=== PATIENT | female | born 1975 | race Caucasian/White ===

== ENCOUNTER 2016-12-02 16:45 | Observation (INO) ==
[2016-12-02 18:12] LABS: INR 1.1; Prothrombin Time 11.5 Seconds (9.4-12.1)
[2016-12-02 18:15] LABS: Activated Partial Thrombo Time 33.9 Seconds (26.0-36.0)
[2016-12-02 18:18] LABS: BUN/Creatinine Ratio 14 (6-26); Blood Urea Nitrogen 13 mg/dL (7-20); Carbon Dioxide 22 mEq/L (19-29); Chloride 107 mEq/L (98-109); Glucose 82 mg/dL (70-99); Osmolality,Calculated 281 (280-300); Potassium 3.8 mEq/L (3.5-4.5); Sodium 136 mEq/L (136-145); eGFR For African Americans > 60 (> 60); eGFR For Non-African Americans > 60 (> 60)
[2016-12-02] MEDS ORDERED: Metoclopramide 10 MG/2 ML VIAL IVP ONE (19:00)
[2016-12-02] MEDS ORDERED: Ketorolac 15 MG/ML VIAL IVP ONE (19:00)
[2016-12-02] MEDS ORDERED: 0.9 % Sodium Chloride 1,000 ML IVC ONE (19:03)
[2016-12-02] MEDS ORDERED: 0.9 % Sodium Chloride 1,000 ML ONE (19:05)
--- NOTE | 2016-12-02 19:06 | Emergency Department Note ---
Disposition Clinical Impression: Stable angina Disposition: Admitted As Inpatient Condition: Good Time of Disposition: 20:44 Chest Pain HPI - General Chief Complaint: ED Chest Pain Stated Complaint: Chest pain, dizziness, MARVIN Time Seen by Provider: 12/02/16 18:16 Source: patient Mode of arrival: ambulatory Limitations: no limitations Vital Signs Reviewed: Yes Nursing Notes Reviewed: Yes - History of Present Illness HPI Narrative: Patient presents to the ED with the chief complaint of chest pain and shortness of breath. Patient reports that she has been having midsternal chest pressure and heaviness for the last month but has been significantly worse over the past week. She saw her primary care physician last week who increased her blood pressure medication. She states that she feels like this does not help. She reports this morning she woke up and had several episodes of emesis. States that the last few episodes were blood-streaked. She states that she vomits very frequently and has had this before. Her complaint of chest pain . She reports as midsternal a very heavy pressure like pain that radiates into her right jaw and neck and her left shoulder. It is associated with some shortness of breath. She gets nauseated from time to time. She does get diaphoretic at 2. She reports of this chest pain is very much exertional, but will also happen at rest at times. She does complain of a migraine type headache for the last few days. She states that this is her typical migraine and is a pressure all over. No changes in vision, numbness or weakness. No fevers, cough, abdominal pain or diarrhea. She does not history of pulmonary embolism several years ago that was non-provoked. She was on a Xarelto but quit taking it. She did not have any hematologic workup for it at that time. She does also complain of bilateral lower extremity claudication with walking. She states that it will go away with rest within a few minutes. She reports that her mother has had 13 stents and her heart and her first heart attack was well before age 52. She does have an appointment set up with cardiology at this facility, but it is not until December of this year. She is unsure who she is supposed to see. Severity scale (1-10): 7 - Related Data Home Medications Medication Instructions Recorded Confirmed ALPRAZolam [Xanax 0.5 MG Tablet] 0.5 mg PO TID PRN 11/04/16 12/02/16 Albuterol Sulfate [Ventolin Hfa] 2 puff IH Q4H PRN 11/04/16 12/02/16 Calcium Carbonate/Vitamin D3 1 each PO BID 11/04/16 12/02/16 [Calcium 500 + Vit D Caplet] Cetirizine HCl [All Day Allergy] 10 mg PO DAILY PRN 11/04/16 12/02/16 Cholecalciferol (D-3) [Vitamin D] 2,000 unit PO DAILY 11/04/16 12/02/16 Fluticasone Propionate [Flovent 1 puff IH BID 11/04/16 12/02/16 Hfa] Ibuprofen [Ibuprofen] 800 mg PO TID PRN 11/04/16 12/02/16 Losartan Potassium [Cozaar] 50 mg PO DAILY 11/04/16 12/02/16 Methocarbamol [Robaxin] 750 mg PO Q4H PRN 11/04/16 12/02/16 Metoprolol XL (24 HR) Succ [Toprol 50 mg PO 11/04/16 12/02/16 XL] Nitroglycerin [Nitrostat] 0.4 mg SL Q5M PRN 11/04/16 12/02/16 Omeprazole [PriLOSEC] 40 mg PO DAILY 11/04/16 12/02/16 Paliperidone Palmitate [Invega 117 mg IM QMONTH 11/04/16 12/02/16 Sustenna] Quetiapine Fumarate [Seroquel] 400 mg PO HS 11/04/16 12/02/16 Ranitidine HCl [Zantac] 300 mg PO 11/04/16 12/02/16 Topiramate [Topiramate] 100 mg PO BID 11/04/16 12/02/16 lamoTRIgine [Lamictal] 100 mg PO QAM 11/04/16 12/02/16 Amitriptyline HCl 150 mg PO 12/02/16 12/02/16 Ferrous Sulfate [High Potency Iron] 134 mg PO DAILY 12/02/16 12/02/16 Hyoscyamine Sulfate [Hyoscyamine 0.375 mg PO Q12H 12/02/16 12/02/16 Sulfate ER] lamoTRIgine [Lamictal] 200 mg PO 12/02/16 12/02/16 Allergies Allergy/AdvReac Type Severity Reaction Status Date / Time Penicillins Allergy See Verified 12/02/16 16:50 Comments Constitutional: Denies: fever Eyes: Denies: vision change Cardiovascular: Reports: chest pain, dyspnea on exertion Respiratory: Reports: dyspnea Gastrointestinal: Reports: nausea, vomiting Neurological: Reports: headache Chest Pain PMH - Past Medical History Medical history: Reports: arthritis, hypertension, migraine Surgical history: Reports: non-contributory Psychiatric history: Reports: anxiety, bipolar, depression SLUBBER FRAME CHANGER history: Reports: no SLUBBER FRAME CHANGER history - Social History Smoking Status: Never smoker Alcohol use: Reports: occasionally Drug use: Reports: none Physical Exam - General Limitations: no limitations General appearance: alert, in no apparent distress, obese, other (Very pleasant , but appears to feel unwell) - Head Head exam: atraumatic, normocephalic, normal inspection - Eye Eye exam: Present: normal appearance, PERRL, EOMI - ENT ENT exam: normal exam, normal oropharynx, mucous membranes moist - Neck Neck exam: Present: normal inspection, full ROM, trachea midline - Chest Chest inspection: Present: normal inspection, symmetric chest wall rise - Respiratory Respiratory exam: Present: normal lung sounds bilaterally - Cardiovascular Cardiovascular exam: Present: regular rate, normal rhythm, normal heart sounds - Abdominal Exam Abdominal exam: Present: soft, Non-Tender. Absent: tenderness, distention, guarding, rebound, rigidity - Extremities Exam Extremities exam: Present: normal inspection, full ROM. Absent: tenderness, pedal edema - Neurological Exam Neurological exam: Present: alert, oriented X3 - Psychiatric Psychiatric exam: Present: flat affect - Skin Skin exam: Present: warm, dry, intact, normal color Course Course Narrative: 41-year-old female presenting with chest pain and shortness of breath and headache. Strong family history of heart disease. Also has a history of pulmonary embolism and is no longer on anticoagulation. This was not a provoked PE nor did she have hematologic testing for clotting disorders. Her well's score is 5.5, placing her in a moderate risk category. We will proceed with a CTA of her chest to rule out PE. Initial troponin is negative. An initial EKG is normal. After we evaluated for PE. She will be admitted to the hospitalist service for further cardiac workup. - Reevaluation(s) Reevaluation #1: CTA of her chest was negative for pulmonary embolism. However, based on her risk factors and history, her heart score is 4-5. We will admit her to the hospital service for further workup. Patient agreeable with plan. Time: 20:15 Vital Signs Temperature 97.7 F 12/02/16 16:47 Pulse Rate 91 12/02/16 16:47 Respiratory Rate 22 12/02/16 16:47 Blood Pressure 173/103 12/02/16 16:47 O2 Sat by Pulse Oximetry 100 12/02/16 16:47 Temperature 97.5 F L 12/02/16 22:25 Pulse Rate 70 12/02/16 22:25 Respiratory Rate 18 12/02/16 22:25 Blood Pressure 126/86 12/02/16 22:25 O2 Sat by Pulse Oximetry 100 12/02/16 22:25 Oxygen Delivery Oxygen Delivery Room Air Chest Pain - Medical Records Medical records reviewed: Yes I reviewed the patient's medical records. - Lab Data Lab results reviewed: Yes I reviewed the patient's lab results. Result diagrams: 12/02/16 21:44 12/02/16 17:54 Lab Results 12/02/16 12/02/16 12/02/16 Range/Units 17:54 17:54 17:54 PT 11.5 (9.4-12.1) Seconds INR 1.1 APTT 33.9 (26.0-36.0) Seconds Sodium 136 (136-145) mEq/L Potassium 3.8 (3.5-4.5) mEq/L Chloride 107 (98-109) mEq/L Carbon Dioxide 22 (19-29) mEq/L BUN 13 (7-20) mg/dL Creatinine 0.92 (0.57-1.11) mg/dL Est GFR ( Amer) > 60 (> 60) Est GFR (Non-Af Amer) > 60 (> 60) BUN/Creatinine Ratio 14 (6-26) Glucose 82 (70-99) mg/dL Calculated Osmolality 281 (280-300) Calcium 9.0 (8.6-10.8) mg/dL Troponin I 0.01 (0-0.03) ng/mL - Radiology Data Radiology results reviewed: Yes I reviewed the patient's radiology results. - EKG Data EKG attestation: Yes I reviewed and interpreted this EKG. EKG results narrative: Sinus rhythm, rate 84, TN interval 171, QRS 98, QTC 406, normal axis, inverted T waves in lead V1 and V2, otherwise no changes. Heart Score - Score History: Highly Suspicious EKG: Non Specific repolarisation Disturbance Age: Less than 45 Risk Factors: Equal/Greater than 3 risk factor or history of atherosclerotic disease Troponin: Less than normal limit HEART Score Total: 5 S.B.AOrtiz. - S.Ethel Situation: Demographics, MOA Background: Presenting Complaint, Relevant PMH, Meds, & Allergies Assessment: Vital Signs, Course and respsone to treatment, Exam Concerns, Patient/Family Expectation, Pertinant Lab Results, Outstanding Labs Recommendation: Recommendation based on pending studies, treatments, or consults S.B.A.RKandice Report Given to: Dr. Maryanne Schwab Repor Time: 20:45 Attestation Statement - Attestation Attestation: I, Romario Simon, examined this patient and my medical decision-making was reviewed with the STENCIL MACHINE OPERATOR/PA/Advanced Practice Nurse/Resident Physician. I agree with the documented findings, disposition and treatment plan as described except to the extent set forth below. 41-year-old female presents with concerns of chest pain and lightheadedness. Patient states she has been having chest pain intermittently over the past month however. It has become significantly worse over the past week. Today the patient has had multiple episodes of chest pain described as a pressure in her central chest which radiates to her jaw and left shoulder. Patient reports associated diaphoresis, shortness of breath and lightheadedness. Patient has a family history with multiple family members being diagnosed with cardiac disease before the age of 50. Patient is morbidly obese and has a history of tobacco use, hypertension and hyperlipidemia. Patient states she failed a stress test one year ago however has not had further evaluation of her heart. Initial troponin was negative. Heart score equals 5. CTA of the chest did not reveal acute infiltrate, pneumothorax or evidence of PE. Initial EKG showed normal sinus rhythm with a rate of 84 without evidence of STEMI. Patient will be admitted to the hospital for further care and evaluation of her acute chest pain to rule out ACS.
[2016-12-02] MEDS ORDERED: Ondansetron 4 MG/2 ML VIAL IVP ONE (20:21)
[2016-12-02] MEDS ORDERED: *HR* HYDROmorphone (PF) 1 MG/ML SYRINGE IVP ONE (20:36)
[2016-12-02] MEDS ORDERED: Aspirin 325 MG TABLET PO ONE (20:36)
[2016-12-02] MEDS ORDERED: Nitroglycerin 1 INCH/GM PACKET TP ONE (20:37)
[2016-12-02 22:11] LABS: Basophils % 0.7 %; Eosinophils # 0.1 K/mcL (0.0-0.6); Eosinophils % 1.9 %; Hematocrit 34.5 % (35.3-44.9); Hemoglobin 10.7 g/dL (11.5-15.4); Immature Granulocytes % 1.2 % (0-4); Immature Platelets 4.4 % (1.1-6.1); Lymphocytes # 1.7 K/mcL (0.6-4.6); Lymphocytes % 30.1 %; Mean Corpuscular Volume 90.3 fL (83.0-100.0); Mean Platelet Volume 10.1 fL (9.4-12.4); Monocytes # 0.6 K/mcL (0.0-1.3); Monocytes % 9.6 %; Neutrophils # 3.3 K/mcL (1.6-8.9); Platelet Count 248 K/mcL (140-400); Red Blood Count 3.82 M/mcL (3.82-4.97); Segmented Neutrophils % 56.5 %
--- NOTE | 2016-12-02 23:58 | Internal Med History&Physical ---
Date of Encounter: 12/03/16 Time of Encounter: 23:56 Assessment and Plan (1) Chest pain Current visit: Yes Status: Acute atypical chest pain. denies any h/o CHF or CAD in the past posisble from uncontrolled hTN, her PCP increased her BP meds recently. BP noted to be 170s/120s on presentation nitro patch was applied, better now, family h/o CAD in mother with 13 stents. will continue cecilia nitroglycerin, monitor tele. trop is negative, will trend x3, less likely ACS , EKG NSR. Qualifiers: Chest pain type: unspecified Qualified Code(s): R07.9 - Chest pain, unspecified (2) History of pulmonary embolus (PE) Current visit: Yes Status: Acute Patient reports history of PE in 2013. Unprovoked as per the history. Took xarelto for 1-1/2 months and discontinued by herself as the insurance did not cover. CTA done this admission does not show any evidence of PE at this time. (3) Uncontrolled hypertension Current visit: Yes Status: Acute BP at presentation was 170s/120s reports that she had new meds added by her PCP. currently 120s/80s, will continue to monitor restart her home BP meds. (4) Migraine Current visit: Yes Status: Acute h/o migraine and she says its pretty much controlled with the lamictal and topamax. however she has been experiencing worsening headache for the last couple of days , ? from uncontrolled HTN will continue her home meds for migraine, ibuprofen prn. Qualifiers: Migraine type: without aura Status migrainosus presence: without status migrainosus Intractability: not intractable Qualified Code(s): G43.009 - Migraine without aura, not intractable, without status migrainosus Internal Medicine - H&P: HPI Chief complaint: chest pain Admitted From: Home Plans for Post Hospital Care: Home History of present illness: Ms. Brown is a 41 year old female presented with midsternal chest pressure and heaviness that has been going on for last month but has been significantly worse over the past week. She saw her primary care physician last week who increased her blood pressure medication. She reports as midsternal a very heavy pressure like pain that radiates into her right jaw and neck and her left shoulder. It is associated with some shortness of breath. She gets nauseated from time to time. She reports of this chest pain is very much exertional, but will also happen at rest at times. She does complain of a migraine type headache for the last few days. No changes in vision, numbness or weakness. No fevers, cough, abdominal pain or diarrhea. She does have a history of pulmonary embolism several years ago that was non-provoked. She was on a Xarelto but quit taking it after a month and a half because she says the insurance did not cover. She did not have any hematologic workup for it at that time. She reports that her mother has had 13 stents and her heart and her first heart attack was well before age 52. She does have an appointment set up with cardiology at this facility, but it is not until December of this year. Denies any history of cardiac catheterization or stent he started history of CHF or CAD in the past Past Med Surg Social Fam HX - Past Medical History Medical history: arthritis, hypertension, migraine Psychiatric history: anxiety, bipolar, depression - Past Surgical History Surgical History: non-contributory - Social History Smoking Status: Never smoker Smokeless Tobacco Status: Yes Alcohol use: occasionally Drug use: none - Family History Mother Hx Family Cardiac Disorders: Yes (MYOCARDIAL INFARCTION.) Internal Medicine - H&P: Meds ALPRAZolam [Xanax 0.5 MG Tablet] 0.5 mg PO TID PRN 11/04/16 [History] Albuterol Sulfate [Ventolin Hfa] 2 puff IH Q4H PRN 11/04/16 [History] Calcium Carbonate/Vitamin D3 [Calcium 500 + Vit D Caplet] 1 each PO BID [History] Cetirizine HCl [All Day Allergy] 10 mg PO DAILY PRN 11/04/16 [History] Cholecalciferol (D-3) [Vitamin D] 2,000 unit PO DAILY 11/04/16 [History] Fluticasone Propionate [Flovent Hfa] 1 puff IH BID 11/04/16 [History] Ibuprofen [Ibuprofen] 800 mg PO TID PRN 11/04/16 [History] Losartan Potassium [Cozaar] 50 mg PO DAILY 11/04/16 [History] Methocarbamol [Robaxin] 750 mg PO Q4H PRN 11/04/16 [History] Metoprolol XL (24 HR) Succ [Toprol XL] 50 mg PO HS 11/04/16 [History] Nitroglycerin [Nitrostat] 0.4 mg SL Q5M PRN 11/04/16 [History] Omeprazole [PriLOSEC] 40 mg PO DAILY 11/04/16 [History] Paliperidone Palmitate [Invega Sustenna] 117 mg IM QMONTH 11/04/16 [History] Quetiapine Fumarate [Seroquel] 400 mg PO HS 11/04/16 [History] Ranitidine HCl [Zantac] 300 mg PO HS 11/04/16 [History] Topiramate [Topiramate] 100 mg PO BID 11/04/16 [History] lamoTRIgine [Lamictal] 100 mg PO QAM 11/04/16 [History] Amitriptyline HCl 150 mg PO HS 12/02/16 [History] Ferrous Sulfate [High Potency Iron] 134 mg PO DAILY 12/02/16 [History] Hyoscyamine Sulfate [Hyoscyamine Sulfate ER] 0.375 mg PO Q12H 12/02/16 [History] lamoTRIgine [Lamictal] 200 mg PO HS 12/02/16 [History] Allergies Penicillins Allergy (Verified 12/02/16 16:50) See Comments "I don't know" CHILDHOOD REACTION All Systems PM: A 10-system review of systems was performed and is negative for pertinent findings except as documented above in the HPI. - Constitutional Constitutional: no chills, no fever(s), no night sweats - EENT Eyes: no change in vision, no discharge, no pain, no photophobia Ears: no ear discharge, no ear pain, no tinnitus Nose, mouth and throat: no dysphagia, no nasal discharge, no neck pain, no sore throat - Cardiovascular Cardiovascular ROS IM: chest pain - Respiratory Respiratory: dyspnea on exertion - Gastrointestinal Gastrointestinal: no abdominal pain, no diarrhea, no hematemesis, no hematochezia, no melena, no nausea, no vomiting - Genitourinary Genitourinary: no change in urinary stream, no dysuria, no flank pain, no hematuria - Musculoskeletal Musculoskeletal ROS IM: as per HPI - Constitutional Vitals: Temp Pulse Resp BP Pulse Ox 97.5 F L 70 18 126/86 100 12/02/16 22:25 07/05/17 22:25 12/02/16 22:25 12/02/16 22:25 12/02/16 22:25 General appearance: Present: A&O X 3, no acute distress Exam: Morbidly obese patient. Neck supple. Chest bilateral clear, no added sounds. CVS S1-S2, no murmurs rubs or gallops. Abdomen soft, obese, nontender, bowel sounds are present. Extremities no edema. Neuro alert and awake, no focal neuro deficits. Internal Med - H&P Results - Labs CBC & Chem 7: 12/03/16 01:40 12/03/16 01:40 Labs: Short CBC 12/02/16 Range/Units 21:44 WBC 5.8 (4.3-11.1) K/mcL Hgb 10.7 L (11.5-15.4) g/dL Hct 34.5 L (35.3-44.9) % Plt Count 248 (140-400) K/mcL Neutrophils # 3.3 (1.6-8.9) K/mcL - Attending Attestation I examined this patient and my medical decision-making was reviewed with the Resident Physician. I agree with the documented findings, disposition and treatment plan as described
[2016-12-03] MEDS ORDERED: Naloxone 0.4 MG/ML INJ IVP PRN (00:05)
[2016-12-03] MEDS: *HR* HYDROmorphone (PF) 1 MG/ML SYRINGE IVP PRN ×5 (00:52→22:13)
[2016-12-03] MEDS: Ondansetron 4 MG/2 ML VIAL IVP PRN ×2 (00:55→13:12)
[2016-12-03 02:26] LABS: Basophils % 0.8 %; Eosinophils # 0.1 K/mcL (0.0-0.6); Eosinophils % 2.4 %; Hematocrit 34.1 % (35.3-44.9); Hemoglobin 10.6 g/dL (11.5-15.4); Immature Granulocytes % 1.6 % (0-4); Immature Platelets 2.8 % (1.1-6.1); Lymphocytes # 1.6 K/mcL (0.6-4.6); Lymphocytes % 32.1 %; Mean Corpuscular HGB Conc 31.1 g/dL (31.6-35.5); Mean Corpuscular Hemoglobin 28.2 pg (28.0-33.3); Mean Corpuscular Volume 90.7 fL (83.0-100.0); Mean Platelet Volume 10.3 fL (9.4-12.4); Monocytes # 0.5 K/mcL (0.0-1.3); Monocytes % 8.9 %; Neutrophils # 2.7 K/mcL (1.6-8.9); Platelet Count 244 K/mcL (140-400); Red Blood Count 3.76 M/mcL (3.82-4.97); Segmented Neutrophils % 54.2 %
[2016-12-03 02:43] LABS: BUN/Creatinine Ratio 15 (6-26); Blood Urea Nitrogen 14 mg/dL (7-20); Calcium 8.3 mg/dL (8.6-10.8); Carbon Dioxide 27 mEq/L (19-29); Chloride 107 mEq/L (98-109); Glucose 106 mg/dL (70-99); Magnesium 1.9 mg/dL (1.6-2.6); Osmolality,Calculated 291 (280-300); Phosphorous 3.9 mg/dL (2.3-4.7); Potassium 3.3 mEq/L (3.5-4.5); Sodium 140 mEq/L (136-145); eGFR For African Americans > 60 (> 60); eGFR For Non-African Americans > 60 (> 60)
[2016-12-03 06:41] LABS: Bilirubin,Urine Negative (Negative); Blood,Urine Negative (Negative); Clarity,Urine Clear (Clear); Color,Urine Yellow (Yellow); Glucose,Urine (UA) Normal (Normal); Ketones,Urine Negative (Negative); Leukocyte Esterase,Urine Negative (Negative); Nitrite,Urine Negative (Negative); PH,Urine 5.5 pH Units (5.0-8.0); Protein,Urine Negative (Neg-Trace); Specific Gravity,Urine > 1.030 (1.010-1.025); Urobilinogen,Urine Normal (Normal)
[2016-12-03] MEDS: Beclomethasone 80mcg MDI IH SCH ×2 (07:53→20:03)
[2016-12-03] MEDS: lamoTRIgine 100 MG TABLET PO SCH ×2 (08:57→21:03)
[2016-12-03] MEDS: Aspirin 81 MG TAB.CHEW PO SCH (08:57)
[2016-12-03] MEDS: Topiramate 100 MG TABLET PO SCH ×2 (08:58→21:04)
[2016-12-03] MEDS: ALPRAZolam 0.5 MG TABLET PO PRN ×2 (08:58→22:14)
--- NOTE | 2016-12-03 11:52 | Electrocardiograph Report ---
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
--- NOTE | 2016-12-03 15:38 | Internal Med Progress Note ---
Date of Encounter: 12/03/16 Time of Encounter: 09:40 - Assessment and plan (1) Chest pain Current Visit: Yes Status: Acute Assessment and plan: Patient reports approximately 12-14 day history of chest pressure. She describes it as feeling like she was punched in the middle of the chest, then she feels palpitations, squeezing pain accompanied by shortness of breath. She reports that this happens daily, has increased to 4-5 times a day, lasting anywhere from 5 min to 2 hours. She states that symptoms began about 12 days ago after primary care physician adjusted her blood pressure medications. She saw him after 2 day history of chest pain, shortness breath, headache. Along with the chest pain she has right ear tinnitus, headache. She tells me that this morning she forgot to swallow and over the last 2 weeks when she takes a deep breath, "I feel like I am breathing through my abdomen and gets lost there and it takes my brain a while to tell the rest of my body what to do." Due to patient's history of morbid obesity and hypertension, family history of coronary artery disease in mother, I ordered a stress test for the morning. Patient will require a 2 day stress. Troponins have been negative, chest CTA negative for pulmonary embolism or other acute process. Chest x-ray was negative. A1c was within normal limits in Sep, 2016. Lipid panel will be drawn. Nothing by mouth after midnight Telemetry Stress test morning Consider cardiology consult based on results of stress test Medications chest pain. Monitor labs in the morning Continue aspirin and beta mauricio Qualifiers: Chest pain type: unspecified Qualified Code(s): R07.9 - Chest pain, unspecified (2) History of pulmonary embolus (PE) Current Visit: Yes Status: Acute Assessment and plan: Prior history of PE in 2013. Patient is a relative for about 1-1/2 months and discontinued by herself due to lack of insurance coverage. CTA this visit was negative for PE. Chest X-Ray 12/02/16 16:50 IMPRESSION: Negative portable study. D/ / Adilia Robbins Cha, MD / Adilia Robbins Cha, MD Interpreting Provider: Adilia Robbins Cha, MD Chest CTA 12/02/16 18:46 IMPRESSION: No evidence of pulmonary embolism or other acute process in the chest. D/ / Gage Araiza MD / Gage Araiza MD Interpreting Provider: Gage Araiza MD (3) Uncontrolled hypertension Current Visit: Yes Status: Acute Assessment and plan: Patient reports recent medication changes. Blood pressure is well-controlled at this time. Continue home medications. Continue monitor vital signs. (4) Migraine Current Visit: Yes Status: Acute Assessment and plan: Patient denies headache at this time. She reports to admit her that her headaches have been increasing over the last couple of days, could be from uncontrolled hypertension. Patient states normally they are well controlled with Lamictal and Topamax. Continue her home meds. Qualifiers: Migraine type: without aura Status migrainosus presence: without status migrainosus Intractability: not intractable Qualified Code(s): G43.009 - Migraine without aura, not intractable, without status migrainosus - Time Spent With Patient less than 15 minutes - Subjective Interval history: Patient seen and examined about 9:40 AM. She reports approximately 12-14 day history of chest pain, shortness of breath, headache. She was seen by her primary care physician about a week and half ago and her blood pressure medications were changed. She was told that if she continued to have problems she used to go to the emergency room. She presented to the emergency room yesterday with chest pain the patient states it feels like she was punched in the chest, then she begins feeling palpitations and tachycardia, then she begins having squeezing and shortness of breath. She denies diaphoresis, however she did have nausea yesterday. She reports that this happened daily, has increased to 4-5 times a day lasting anywhere from 5 minutes to 2 hours. She reports along with the chest pain she has right ear tinnitus and headache. Today she states that she forgot how to swallow this morning and over the last 2 weeks she takes deep breath, "I feel like I am breathing through my abdomen and gets lost their takes membrane a while to fill the rest of my body what to do." Patient does have a history of depression and anxiety and takes Xanax when necessary. She denies increased anxiety her situation change. She says that she is happier than she has been in a very long time. She denies increased use of the Xanax and states that she only take support it 5 times a week. I ordered a stress test for tomorrow. - Constitutional Vitals: Temp Pulse Resp BP Pulse Ox 97.7 F 84 14 139/81 98 12/03/16 15:04 12/03/16 15:04 12/03/16 15:04 12/03/16 15:04 12/03/16 15:04 General appearance: Present: A&O X 3, pleasant, no acute distress, answers questions appropriately - Head Head exam: Present: normal inspection - Eye Eye exam: Present: normal appearance, conjuntiva pink - ENT ENT exam: Present: mucous membranes moist, normal exam, normal external ear exam - Neck Neck exam general surgery: Absent: lymphadenopathy, tenderness - Respiratory Respiratory exam: Present: CTAB. Absent: accessory muscle use, decreased breath sounds, prolonged expiratory phase, rales, respiratory distress, rhonchi , stridor, wheezes, tachypnea - Cardiovascular Cardiovascular exam: Present: RRR, +S1, +S2. Absent: bradycardia, clicks, diastolic murmur, gallop, systolic murmur, tachycardia - GI/Abdominal GI/Abdominal exam: Present: distended, normal bowel sounds, soft. Absent: hernia, hepatomegaly, tenderness - Extremities Exam Extremities exam: Present: normal inspection, pedal edema, warm, radial pulses palpable and symetrical. Absent: tenderness - Neurological Exam Neurological exam: Present: alert, oriented X3, no focal deficits, strengths equal and symetr throughout. Absent: facial droop, speech deficit Internal Medicine: Result - Labs CBC & Chem 7: 12/03/16 01:40 12/03/16 01:40 Labs: Short CBC 12/02/16 12/03/16 Range/Units 21:44 01:40 WBC 5.8 5.1 (4.3-11.1) K/mcL Hgb 10.7 L 10.6 L (11.5-15.4) g/dL Hct 34.5 L 34.1 L (35.3-44.9) % Plt Count 248 244 (140-400) K/mcL Neutrophils # 3.3 2.7 (1.6-8.9) K/mcL BMP 12/03/16 01:40 Sodium 140 Potassium 3.3 L Chloride 107 Carbon Dioxide 27 BUN 14 Creatinine 0.94 Glucose 106 H Calcium 8.3 L Cardiac Enzymes 12/03/16 12/03/16 Range/Units 01:40 06:25 Troponin I 0.00 0.00 (0-0.03) ng/mL Urine 12/03/16 Range/Units 06:20 Urine Color Yellow (Yellow) Urine Clarity Clear (Clear) Urine pH 5.5 (5.0-8.0) pH Units Ur Specific [place] > 1.030 H (1.010-1.025) Urine Protein Negative (Neg-Trace) mg/dL Urine Glucose (UA) Normal (Normal) mg/dL - ABG Interpretation ABG results: PT/INR, D-dimer PT 11.5 Seconds (9.4-12.1) 12/02/16 17:54 Consult Discharge Plan - Plan Referrals: Jamey Leroy MD [Primary Care Provider] - 12/11/16 10:45 am
[2016-12-03] MEDS: Metoprolol XL (24 HR) Succ 50 MG TAB.ER.24H PO SCH (21:04)
[2016-12-03] MEDS: Ibuprofen 800 MG TABLET PO PRN (21:13)
[2016-12-04] MEDS: Ondansetron 4 MG/2 ML VIAL IVP PRN ×2 (03:12→16:05)
[2016-12-04] MEDS: *HR* HYDROmorphone (PF) 1 MG/ML SYRINGE IVP PRN (03:16)
[2016-12-04 03:33] LABS: Basophils % 0.7 %; Eosinophils # 0.2 K/mcL (0.0-0.6); Eosinophils % 3.2 %; Hematocrit 34.3 % (35.3-44.9); Hemoglobin 10.5 g/dL (11.5-15.4); Immature Granulocytes % 1.2 % (0-4); Lymphocytes # 1.8 K/mcL (0.6-4.6); Lymphocytes % 29.7 %; Mean Corpuscular HGB Conc 30.6 g/dL (31.6-35.5); Mean Corpuscular Hemoglobin 27.6 pg (28.0-33.3); Mean Platelet Volume 9.8 fL (9.4-12.4); Monocytes # 0.6 K/mcL (0.0-1.3); Monocytes % 9.7 %; Neutrophils # 3.3 K/mcL (1.6-8.9); Platelet Count 255 K/mcL (140-400); Red Blood Count 3.81 M/mcL (3.82-4.97); Red Cell Distribution Width 13.9 % (11.5-14.5); Segmented Neutrophils % 55.5 %
[2016-12-04 03:48] LABS: BUN/Creatinine Ratio 14 (6-26); Blood Urea Nitrogen 15 mg/dL (7-20); Calcium 8.8 mg/dL (8.6-10.8); Carbon Dioxide 28 mEq/L (19-29); Chloride 106 mEq/L (98-109); Chol/HDL Ratio 7.5 (0-4.9); Cholesterol 232 mg/dL (< 200); Glucose 106 mg/dL (70-99); HDL Cholesterol 31 mg/dL (40-59); Osmolality,Calculated 289 (280-300); Potassium 4.1 mEq/L (3.5-4.5); Sodium 139 mEq/L (136-145); eGFR For African Americans > 60 (> 60); eGFR For Non-African Americans 55 (> 60)
[2016-12-04 04:28] LABS: LDL Cholesterol,Calculated 159 mg/dL (0-99); Triglycerides 208 mg/dL (< 150)
[2016-12-04] MEDS ORDERED: Regadenoson 0.4 MG/5 ML SYRINGE IVP ONE (06:08)
[2016-12-04 10:57] LABS: % Iron Saturation 29 % (15-50); Iron 75 mcg/dL (50-170); Transferrin 182 mg/dL (180-382)
[2016-12-04] MEDS: Aspirin 81 MG TAB.CHEW PO SCH (11:02)
[2016-12-04] MEDS: Ibuprofen 800 MG TABLET PO PRN (11:02)
[2016-12-04] MEDS: lamoTRIgine 100 MG TABLET PO SCH ×2 (11:03→20:35)
[2016-12-04] MEDS: Topiramate 100 MG TABLET PO SCH ×2 (11:03→20:35)
[2016-12-04 11:32] LABS: Folate 4.7 ng/mL (7.0-31.4)
[2016-12-04] MEDS: Beclomethasone 80mcg MDI IH SCH ×2 (12:28→20:20)
[2016-12-04] MEDS ORDERED: traMADol 50 MG TABLET PO ONE (16:04)
--- NOTE | 2016-12-04 17:42 | Electrocardiograph Report ---
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
--- NOTE | 2016-12-04 18:33 | Internal Med Progress Note ---
Date of Encounter: 12/04/16 Time of Encounter: 13:00 - Assessment and plan (1) Chest pain Current Visit: Yes Status: Acute Assessment and plan: Chest pain has improved slightly today. Decreased in intensity, however character remains the same. Patient reports that she had chest pain during her stress test. Today pain is slightly reproducible deep inspiration. It is not reproducible with palpation. Nothing by mouth after midnight Telemetry Stress test morning Consider cardiology consult based on results of stress test Medications chest pain. Monitor labs in the morning Continue aspirin and beta mauricio Qualifiers: Chest pain type: unspecified Qualified Code(s): R07.9 - Chest pain, unspecified (2) History of pulmonary embolus (PE) Current Visit: Yes Status: Acute Assessment and plan: Prior history of PE in 2013. Patient is a relative for about 1-1/2 months and discontinued by herself due to lack of insurance coverage. CTA this visit was negative for PE. Chest X-Ray 12/02/16 16:50 IMPRESSION: Negative portable study. D/ / Adilia Robbins Cha, MD / Adilia Robbins Cha, MD Interpreting Provider: Adilia Robbins Cha, MD Chest CTA 12/02/16 18:46 IMPRESSION: No evidence of pulmonary embolism or other acute process in the chest. D/ / Gage Araiza MD / Gage Araiza MD Interpreting Provider: Gage Araiza MD (3) Uncontrolled hypertension Current Visit: Yes Status: Acute Assessment and plan: Well-controlled. We will continue to monitor vital signs continue home medications. (4) Migraine Current Visit: Yes Status: Acute Assessment and plan: Patient denies headache at this time. Continue her home meds. Qualifiers: Migraine type: without aura Status migrainosus presence: without status migrainosus Intractability: not intractable Qualified Code(s): G43.009 - Migraine without aura, not intractable, without status migrainosus - Time Spent With Patient less than 15 minutes - Subjective Interval history: Patient seen and examined about 1300 today. She has completed first day of stress test. She says she continues to have chest pressure. She says it is decreased to about an 8/10. It is not reproducible with palpation, though today it is slightly reproducible with deep inspiration. She denies any complaints. Most likely will discharge tomorrow stress test negative. - Constitutional Vitals: Temp Pulse Resp BP Pulse Ox 97.2 F L 82 20 122/84 95 12/04/16 15:31 12/04/16 15:31 12/04/16 15:31 12/04/16 15:31 12/04/16 15:31 General appearance: Present: A&O X 3, morbidly obese, pleasant, no acute distress, answers questions appropriately - Head Head exam: Present: normal inspection - Eye Eye exam: Present: normal appearance, conjuntiva pink - ENT ENT exam: Present: mucous membranes moist, normal exam - Neck Neck exam general surgery: Absent: lymphadenopathy, tenderness - Respiratory Respiratory exam: Present: decreased breath sounds, CTAB. Absent: chest wall tenderness, rales, respiratory distress, rhonchi, stridor, wheezes - Cardiovascular Cardiovascular exam: Present: RRR, +S1, +S2. Absent: clicks, diastolic murmur, gallop, systolic murmur - GI/Abdominal GI/Abdominal exam: Present: distended, normal bowel sounds. Absent: tenderness - Neurological Exam Neurological exam: Present: alert, oriented X3. Absent: pronater drift, facial droop, speech deficit - Skin Skin exam: Present: dry, intact, warm. Absent: rash Internal Medicine: Result - Labs CBC & Chem 7: 12/04/16 03:24 12/04/16 03:24 Labs: Short CBC 12/04/16 Range/Units 03:24 WBC 6.0 (4.3-11.1) K/mcL Hgb 10.5 L (11.5-15.4) g/dL Hct 34.3 L (35.3-44.9) % Plt Count 255 (140-400) K/mcL Neutrophils # 3.3 (1.6-8.9) K/mcL BMP 12/04/16 03:24 Sodium 139 Potassium 4.1 Chloride 106 Carbon Dioxide 28 BUN 15 Creatinine 1.11 Glucose 106 H Calcium 8.8 - ABG Interpretation ABG results: PT/INR, D-dimer PT 11.5 Seconds (9.4-12.1) 12/02/16 17:54 Consult Discharge Plan - Plan Referrals: Jamey Leroy MD [Primary Care Provider] - 12/11/16 10:45 am
[2016-12-04] MEDS: ALPRAZolam 0.5 MG TABLET PO PRN (20:34)
[2016-12-04] MEDS: Metoprolol XL (24 HR) Succ 50 MG TAB.ER.24H PO SCH (20:36)
[2016-12-05] MEDS: lamoTRIgine 100 MG TABLET PO SCH (09:45)
[2016-12-05] MEDS: Topiramate 100 MG TABLET PO SCH (09:45)
[2016-12-05] MEDS: Aspirin 81 MG TAB.CHEW PO SCH (09:45)
[2016-12-05] MEDS: Ibuprofen 800 MG TABLET PO PRN (09:45)
[2016-12-05] MEDS: Beclomethasone 80mcg MDI IH SCH (09:58)
[2016-12-05] MEDS ORDERED: Loratadine 10 MG TABLET PO PRN (10:00)
[2016-12-05] MEDS ORDERED: HYOSCYAMINE SULFATE 0.375 MG PO SCH (10:00)
[2016-12-05] MEDS ORDERED: Methocarbamol 750 MG TABLET PO PRN (10:00)
[2016-12-05 11:54] VITALS: BP 136/90
--- NOTE | 2016-12-05 12:34 | Nuclear Medicine Stress Report ---
Regadenoson Nuclear 2 day Name: Keli Brown Date of Study: 12/04/2016 Date: 1975 Ht: 70.0 in Medical Record#: [id number] Age: 41 Wt: 397.0 lb Gender: Female Order #: [id number] Location: [facility] Room: [facility] Supervising Provider: Arnold Hansen CNP Reading Physician: Skye Drake DO Ordering Physician: Lexi Pacheco CNP Primary Care Physician: Jamey Leroy MD Stress Technologist: Ayde Wilson RRT Security Representative: Mitch England Indications: Chest Pain Impression: Perfusion imaging was negative for ischemia or infarct. Pharmacologic ECG was negative for ischemia at the level of heart rate achieved. Patient had chest pain throughout procedure. Gated EF = 62%. Recommend clinical correlation. History: Hypertension Stress Test Summary: Stress Test Type: Pharmacologic Regadenoson 0.4mg/5ml given IV Baseline Information: Initial Heart Rate: 74 Blood Pressure: 130/86 Stress Information: Test Terminated Due to (primary): As per protocol Maximum Blood Pressure: 112/80 Maximum Heart Rate: 91 Percent Maximum Heart Rate Achieved: 50 Double Product: 58133 METS Reached: 1 Symptoms: Chest pain Nuclear Summary: SPECT myocardial perfusion imaging using Tc99m Sestamibi given intravenously was performed at rest and following cardiac stress testing. The resting images were obtained following initial dose of 31.6 mCi. Following stress an additional dose of 32 mCi was given at peak exercise or 30 seconds post regadenoson infusion. Medication Given: Time Medication Dose Units Route Findings: Stress Note * Resting ECG demonstrated normal sinus rhythm. * Pharmacologic stress ECG is negative for ischemia at level of heart rate achieved. * No arrhythmias were noted during stress. * Patient had chest pain throughout the study. Hemodynamic responses * Normal hemodynamic responses to pharmacologic stress. Study Quality * Technically challenging 2-day study due to body habitus. Gated EF % * Gated EF = 62%. Left Ventricle * The left ventricle is not dilated. TID * No evidence of transient ischemic dilatation. Lung Uptake * There is no evidence of increase lung uptake. NORMALS * Normal wall motion. PERFUSION * Homogeneous rest and stress perfusion images. No evidence for ischemia or infarct. Updated by Skye Drake on 12/05/2016 12:29:05 PM electronically signed on 12/05/2016 12:30:16 PM with status of Final
--- NOTE | 2016-12-05 12:44 | Discharge Summary ---
Date of Encounter: 12/05/16 Time of Encounter: 09:35 - Discharge Diagnosis (1) Chest pain Priority: Primary Status: Acute Comments: Pt states that chest pain has been better today and has only increased when she was "agitated when I was having to lie still on the table down there." Today pt states that chest pain is reproduceable with deep inspiration, and today with palpation. She completed day 2 of her stress test today, it was negative for ischemia or infarct and a gated EF of 62%. EKG showed SR with a rate of 86, NE interval 181, QT/QTc 420. Pt normally takes Ibuprofen, will give her a few Ultram for breakthrough pain. S1S2 heard without murmur, gallop, clicks. Lungs are clear. There is no peripheral edema. Pt does report persistent cough that she has had for 2 months. I will also give her Guaifenesin for cough at home. I feel that this is more musculoskeletal chest wall pain. I have suggested heat , anti-inflammatory medications, rest, and I will give her Tramadol for severe breakthrough pain and Guaifenesin. Chest X-Ray 12/02/16 16:50 IMPRESSION: Negative portable study. D/ / Adilia Robbins Cha, MD / Adilia Robbins Cha, MD Interpreting Provider: Adilia Robbins Cha, MD Chest CTA 12/02/16 18:46 IMPRESSION: No evidence of pulmonary embolism or other acute process in the chest. D/ / Gage Araiza MD / Gage Araiza MD Interpreting Provider: Gage Araiza MD Qualifiers: Chest pain type: unspecified Qualified Code(s): R07.9 - Chest pain, unspecified (2) History of pulmonary embolus (PE) Priority: Secondary Status: Chronic Comments: Prior history of PE. CTA here negative for PE. (3) Uncontrolled hypertension Priority: Secondary Status: Chronic Comments: Well controlled in inpatient setting. Continue home medications. (4) Migraine Priority: Secondary Status: Chronic Comments: Chronic. Continue home medications. Qualifiers: Migraine type: without aura Status migrainosus presence: without status migrainosus Intractability: not intractable Qualified Code(s): G43.009 - Migraine without aura, not intractable, without status migrainosus (5) Anemia Priority: Secondary Status: Acute Comments: Folate level 4.7. Hgb remains steady at 10.5 throughout visit. Pt denies remington bleeding, vaginal, rectal. Will supplement with Folic Acid. Follow up outpatient. Qualifiers: Anemia type: folate deficiency Folate deficiency anemia type: unspecified folate deficiency Qualified Code(s): D52.9 - Folate deficiency anemia, unspecified - Discharge Medications Prescriptions: Folic Acid 1 mg PO DAILY #30 tablet GuaiFENesin ER [Mucinex] 600 mg PO BID PRN #30 tbbp.12hr PRN Reason: Cough Simvastatin [Zocor] 20 mg PO QPM #30 tablet Tramadol HCl [Ultram] 50 mg PO BID PRN #6 tab PRN Reason: Severe Pain Home Medications: ALPRAZolam [Xanax 0.5 MG Tablet] 0.5 mg PO TID PRN 11/04/16 [History] Albuterol Sulfate [Ventolin Hfa] 2 puff IH Q4H PRN 11/04/16 [History] Calcium Carbonate/Vitamin D3 [Calcium 500 + Vit D Caplet] 1 each PO BID [History] Cetirizine HCl [All Day Allergy] 10 mg PO DAILY PRN 11/04/16 [History] Cholecalciferol (D-3) [Vitamin D] 2,000 unit PO DAILY 11/04/16 [History] Fluticasone Propionate [Flovent Hfa] 1 puff IH BID 11/04/16 [History] Ibuprofen 800 mg PO TID PRN 11/04/16 [History] Losartan Potassium [Cozaar] 50 mg PO DAILY 11/04/16 [History] Methocarbamol [Robaxin] 750 mg PO Q4H PRN 11/04/16 [History] Metoprolol XL (24 HR) Succ [Toprol Xl] 50 mg PO HS 11/04/16 [History] Nitroglycerin [Nitrostat] 0.4 mg SL Q5M PRN 11/04/16 [History] Omeprazole [PriLOSEC] 40 mg PO DAILY 11/04/16 [History] Paliperidone Palmitate [Invega Sustenna] 117 mg IM QMONTH 11/04/16 [History] Quetiapine Fumarate [Seroquel] 400 mg PO HS 11/04/16 [History] Ranitidine HCl [Zantac] 300 mg PO HS 11/04/16 [History] Topiramate 100 mg PO BID 11/04/16 [History] lamoTRIgine [Lamictal] 100 mg PO QAM 11/04/16 [History] Amitriptyline HCl 150 mg PO HS 12/02/16 [History] Ferrous Sulfate [High Potency Iron] 134 mg PO DAILY 12/02/16 [History] Hyoscyamine Sulfate [Hyoscyamine Sulfate ER] 0.375 mg PO Q12H 12/02/16 [History] lamoTRIgine [Lamictal] 200 mg PO HS 12/02/16 [History] Folic Acid 1 mg PO DAILY #30 tablet 12/05/16 [Rx] GuaiFENesin ER [Mucinex] 600 mg PO BID PRN #30 tbbp.12hr 12/05/16 [Rx] Simvastatin [Zocor] 20 mg PO QPM #30 tablet 12/05/16 [Rx] Tramadol HCl [Ultram] 50 mg PO BID PRN #6 tab 12/05/16 [Rx] Allergies/Adverse Reactions: Allergies Penicillins Allergy (Verified 12/02/16 16:50) See Comments "I don't know" CHILDHOOD REACTION Procedures/tests Complete & Pending: Procedures Performed prior 72 hours Category Date Time Status NM bairon perf SPECT multi [NM] Routine Exams 12/03/16 09:55 Taken ECG 12 lead ECG [ECG] Routine Y 12/03/16 21:01 Completed SP pharm nuclear stress Routine Y 12/04/16 09:55 Completed Date of admission: 12/02/16 21:35 Primary care physician: Jamey Leroy MD Discharging clinician: Lexi Pacheco Anticipated date of discharge: 12/05/16 - Patient Status Disposition: Home, Self-Care Functional capacity at discharge: independent ambulation Overall status at discharge: patient is progressing back to baseline - Discharge Instructions Follow Up With: Jamey Leroy MD [Primary Care Provider] - 12/11/16 10:45 am Additional Instructions: Please follow up with your primary care provider in the next week to 10 days for a follow up visit. Please follow up with cardiology as scheduled on 12/30. Take your new medications as directed. Take the Tramadol only as needed for uncontrolled pain with your normal home medications. Discuss your anemia with your doctor and take your Folic acid as directed. Guaifenesin for cough. Return to the ER as needed for any other problems or concerns or if your pain or symptoms return. - Diet and Activity Activity: increase activity as tolerated Diet: advance to your usual diet Hospital course: Ms. Brown is a 41 year old female - Time Spent with Patient Total time spent providing and/or coordinating discharge services: - Constitutional Vitals: Temp Pulse Resp BP Pulse Ox 98.2 F 84 16 136/90 97 12/05/16 11:53 12/05/16 11:53 12/05/16 11:53 12/05/16 11:53 12/05/16 11:53 General appearance: Present: cooperative, A&O X 3, morbidly obese, pleasant, no acute distress, answers questions appropriately - Head Head exam: Present: normal inspection - Eye Eye exam: Present: normal appearance, conjuntiva pink - ENT ENT exam: Present: mucous membranes moist, normal exam, normal external ear exam - Neck Neck exam general surgery: Absent: lymphadenopathy, tenderness - Respiratory Respiratory exam: Present: CTAB. Absent: rales, respiratory distress, rhonchi, stridor, wheezes - Cardiovascular Cardiovascular exam: Present: RRR, +S1, +S2. Absent: clicks, diastolic murmur, gallop, systolic murmur - GI/Abdominal GI/Abdominal exam: Present: distended, normal bowel sounds, soft. Absent: hepatomegaly, tenderness - Extremities Exam Extremities exam: Present: normal capillary refill, normal inspection, pedal edema, warm, radial pulses palpable and symetrical. Absent: tenderness - Back Exam Back exam: Present: full ROM, tenderness, vertebral tenderness - Neurological Exam Neurological exam: Present: alert, oriented X3. Absent: facial droop, speech deficit
[2016-12-06] MEDS ORDERED: Cholecalciferol (D-3) 1,000 UNIT TABLET PO SCH (09:00)
== END 2016-12-05 14:00 | disposition home or self-care (01) ==
LOC: EMEROO 16:45 → 3BNU 16:45
PROVIDERS: ADMIT Internal Medicine Endocrinology, Diabetes & Metabolism; ATTEND Registered Nurse

== ENCOUNTER 2017-01-31 14:21 | Observation (INO) ==
[2017-01-31 15:00] LABS: Basophils % 0.6 %; Eosinophils # 0.1 K/mcL (0.0-0.6); Eosinophils % 0.8 %; Hematocrit 39.8 % (35.3-44.9); Hemoglobin 12.3 g/dL (11.5-15.4); Immature Granulocytes % 0.5 % (0-4); Immature Platelets 2.4 % (1.1-6.1); Lymphocytes # 1.4 K/mcL (0.6-4.6); Lymphocytes % 21.7 %; Mean Corpuscular HGB Conc 30.9 g/dL (31.6-35.5); Mean Corpuscular Hemoglobin 27.6 pg (28.0-33.3); Mean Corpuscular Volume 89.4 fL (83.0-100.0); Mean Platelet Volume 9.5 fL (9.4-12.4); Monocytes # 0.5 K/mcL (0.0-1.3); Monocytes % 7.2 %; Neutrophils # 4.4 K/mcL (1.6-8.9); Platelet Count 275 K/mcL (140-400); Red Blood Count 4.45 M/mcL (3.82-4.97); Red Cell Distribution Width 13.5 % (11.5-14.5); Segmented Neutrophils % 69.2 %
--- NOTE | 2017-01-31 15:09 | Emergency Department Note ---
Disposition Clinical Impression: Chest pain Qualifiers: Chest pain type: unspecified Qualified Code(s): R07.9 - Chest pain, unspecified Dyspnea Qualifiers: Dyspnea type: unspecified Qualified Code(s): R06.00 - Dyspnea, unspecified Disposition: Admitted As Inpatient Condition: Fair Time of Disposition: 16:10 SOB HPI - General Chief Complaint: ED Shortness of Breath/Dyspnea Stated Complaint: MARVIN,CHF Time Seen by Provider: 01/31/17 15:00 Source: patient Mode of arrival: ambulatory Limitations: no limitations Nursing Notes Reviewed: Yes Vital Signs Reviewed: Yes - History of Present Illness 42-year-old with a history CHF who comes in complaining of increasing dyspnea. Patient also has a history of asthma. Patient's had a recent workup in the last month or 2 which included a negative nuclear stress test, with an EF of 62%. Echocardiogram shows EF of 60%. A CTA of the chest was obtained which was negative for PE. Pt Subjective Complaint: shortness of breath Onset (ago): day(s) Context: occurred during exertion Severity: none Consistency/Duration: constant Improves with: nothing Worsens with: exertion Known history of: asthma, congestive heart failure Associated symptoms: Reports: chest pain Treatment prior to arrival: none Cough Frequency: Intermittent - Related Data Home Medications Medication Instructions Recorded Confirmed ALPRAZolam [Xanax 0.5 MG Tablet] 0.5 mg PO TID PRN 11/04/16 01/31/17 Albuterol Sulfate [Ventolin Hfa] 2 puff IH Q4H PRN 11/04/16 01/31/17 Calcium Carbonate/Vitamin D3 1 each PO BID 11/04/16 01/31/17 [Calcium 500 + Vit D Caplet] Cetirizine HCl [All Day Allergy] 10 mg PO DAILY PRN 11/04/16 01/31/17 Cholecalciferol (D-3) [Vitamin D] 2,000 unit PO DAILY 11/04/16 01/31/17 Fluticasone Propionate [Flovent 1 puff IH BID 11/04/16 01/31/17 Hfa] Ibuprofen 800 mg PO TID PRN 11/04/16 01/31/17 Losartan Potassium [Cozaar] 50 mg PO QAM 11/04/16 01/31/17 Methocarbamol [Robaxin] 750 mg PO Q4H PRN 11/04/16 01/31/17 Nitroglycerin [Nitrostat] 0.4 mg SL Q5M PRN 11/04/16 01/31/17 Omeprazole [PriLOSEC] 40 mg PO QAM 11/04/16 01/31/17 Quetiapine Fumarate [Seroquel] 400 mg PO HS 11/04/16 01/31/17 Ranitidine HCl [Zantac] 300 mg PO HS 11/04/16 01/31/17 lamoTRIgine [Lamictal] 100 mg PO QAM 11/04/16 01/31/17 Amitriptyline HCl 150 mg PO HS 12/02/16 01/31/17 Ferrous Sulfate [High Potency Iron] 134 mg PO DAILY 12/02/16 01/31/17 Hyoscyamine Sulfate [Hyoscyamine 0.375 mg PO Q12H 12/02/16 01/31/17 Sulfate ER] lamoTRIgine [Lamictal] 200 mg PO HS 12/02/16 01/31/17 Atorvastatin [Lipitor] 40 mg PO HS 01/31/17 01/31/17 Furosemide [Lasix] 20 mg PO DAILY 01/31/17 01/31/17 Gabapentin [Neurontin] 300 mg PO TID 01/31/17 01/31/17 Metoprolol XL (24 HR) Succ [Toprol 25 mg PO HS 01/31/17 01/31/17 XL] Paliperidone [Paliperidone ER] 3 mg PO DAILY 01/31/17 01/31/17 Promethazine [Phenergan] 25 mg PO BID PRN 01/31/17 01/31/17 Allergies Allergy/AdvReac Type Severity Reaction Status Date / Time Penicillins Allergy See Verified 01/31/17 14:28 Comments All systems ED: reviewed and negative except as stated. Constitutional: Denies: fever, chills, weakness, weight change Eyes: Denies: eye pain, eye discharge, vision change ENT ED: Denies: ear pain, throat pain, dental pain, hearing loss, epistaxis, congestion, dysphagia Cardiovascular: Reports: chest pain, dyspnea on exertion. Denies: palpitations , edema, syncope Respiratory: Denies: cough, dyspnea, wheezes, hemoptysis, stridor Gastrointestinal: Denies: abdominal pain, nausea, vomiting, diarrhea, constipation, hematemesis, melena, hematochezia Genitourinary: Denies: dysuria, frequency, hematuria, discharge Musculoskeletal: Denies: back pain, neck pain, arthralgia, myalgia Integumentary: Denies: rash, abrasion, lesions Neurological: Denies: headache, weakness, numbness, paresthesias, confusion, abnormal gait, vertigo Psychiatric: Denies: anxiety, depression, suicidal thoughts, homicidal thoughts , auditory hallucinations, visual hallucinations Endocrine: Denies: fatigue Hematological/Lymphatic: Denies: easy bleeding, easy bruising Allergic/Immunologic: Denies: facial swelling, urticaria Past Medical History - Past Medical History Medical history: Reports: arthritis, CHF, hypertension, migraine Surgical history: Reports: non-contributory Psychiatric history: Reports: anxiety, bipolar, depression PRACTICE PROFESSIONAL history: Reports: no PRACTICE PROFESSIONAL history - Social History Smoking Status: Never smoker Smokeless Tobacco Status: Yes Alcohol use: Reports: occasionally Drug use: Reports: none Physical Exam - General Limitations: no limitations General appearance: alert, in no apparent distress - Head Head exam: atraumatic, normocephalic, normal inspection - Eye Eye exam: Present: normal appearance, PERRL, EOMI - ENT ENT exam: normal exam, normal oropharynx, mucous membranes moist - Neck Neck exam: Present: normal inspection, full ROM, trachea midline - Chest Chest inspection: Present: normal inspection, symmetric chest wall rise - Respiratory Respiratory exam: Present: wheezes (Occasional), prolonged expiratory phase - Cardiovascular Cardiovascular exam: Present: regular rate, normal rhythm, normal heart sounds - Abdominal Exam Abdominal exam: Present: soft, Non-Tender. Absent: tenderness, distention, guarding, rebound, rigidity - Extremities Exam Extremities exam: Present: normal inspection, full ROM. Absent: tenderness, pedal edema - Expanded Lower Extremity Exam Neurovascular/Tendon exam: Absent: motor deficit, sensory deficit, tendon deficit Gait: observed and normal - Back Exam Back exam: Present: normal inspection, full ROM. Absent: tenderness - Neurological Exam Neurological exam: Present: alert, oriented X3 - Psychiatric Psychiatric exam: Present: normal affect, normal mood - Skin Skin exam: Present: warm, dry, intact, normal color Course - Reevaluation(s) Reevaluation #1: 42-year-old with multiple risk factors who comes in complaining of dyspnea and chest pain. The patient states she has a history of CHF. I did review her previous workup which shows an EF in the 60 range. Workup here shows a normal BNP and normal chest x-ray EKG shows a sinus rhythm without acute change. Her initial troponin was negative. Patient will be admitted for further evaluation and treatment. Time: 16:09 - Consultations Consultation #1: Discussed with Dr. Romario Noonan, admit hospitalist consult. Time: 15:45 Consultation #2: Discussed with Emi Pa, it. Time: 16:07 Vital Signs Temperature 98.2 F 01/31/17 14:24 Pulse Rate 106 01/31/17 14:24 Respiratory Rate 24 01/31/17 14:24 Blood Pressure 126/89 01/31/17 14:24 O2 Sat by Pulse Oximetry 99 01/31/17 14:24 Temperature 97.7 F 01/31/17 23:01 Pulse Rate 81 01/31/17 23:01 Respiratory Rate 18 01/31/17 23:01 Blood Pressure 145/90 01/31/17 23:01 O2 Sat by Pulse Oximetry 100 01/31/17 23:01 Oxygen Delivery Oxygen Delivery Room Air Shortness of Breath/Dyspnea - Lab Data Result diagrams: 01/31/17 14:51 01/31/17 14:51 Lab Results 01/31/17 01/31/17 01/31/17 Range/Units 14:51 14:51 14:51 WBC 6.3 (4.3-11.1) K/mcL RBC 4.45 (3.82-4.97) M/mcL Hgb 12.3 D (11.5-15.4) g/dL Hct 39.8 (35.3-44.9) % MCV 89.4 (83.0-100.0) fL MCH 27.6 L (28.0-33.3) pg MCHC 30.9 L (31.6-35.5) g/dL RDW 13.5 (11.5-14.5) % Plt Count 275 (140-400) K/mcL MPV 9.5 (9.4-12.4) fL Immature Gran % 0.5 (0-4) % Seg Neutrophils % 69.2 % Lymphocytes % 21.7 % Monocytes % 7.2 % Eosinophils % 0.8 % Basophils % 0.6 % Neutrophils # 4.4 (1.6-8.9) K/mcL Lymphocytes # 1.4 (0.6-4.6) K/mcL Monocytes # 0.5 (0.0-1.3) K/mcL Eosinophils # 0.1 (0.0-0.6) K/mcL Basophils # 0.0 (0.0-0.2) K/mcL Immature Plt Fraction 2.4 (1.1-6.1) % Sodium 139 (136-145) mEq/L Potassium 3.8 (3.5-4.5) mEq/L Chloride 104 (98-109) mEq/L Carbon Dioxide 25 (19-29) mEq/L BUN 14 (7-20) mg/dL Creatinine 1.01 (0.57-1.11) mg/dL Est GFR ( Amer) > 60 (> 60) Est GFR (Non-Af Amer) > 60 (> 60) BUN/Creatinine Ratio 14 (6-26) Glucose 89 (70-99) mg/dL Calculated Osmolality 288 (280-300) Lactic Acid 1.4 (0.5-2.2) mmol/L Calcium 9.2 (8.6-10.8) mg/dL Troponin I (0-0.03) ng/mL B-Natriuretic Peptide (0-100) pg/mL 01/31/17 01/31/17 Range/Units 14:51 14:51 WBC (4.3-11.1) K/mcL RBC (3.82-4.97) M/mcL Hgb (11.5-15.4) g/dL Hct (35.3-44.9) % MCV (83.0-100.0) fL MCH (28.0-33.3) pg MCHC (31.6-35.5) g/dL RDW (11.5-14.5) % Plt Count (140-400) K/mcL MPV (9.4-12.4) fL Immature Gran % (0-4) % Seg Neutrophils % % Lymphocytes % % Monocytes % % Eosinophils % % Basophils % % Neutrophils # (1.6-8.9) K/mcL Lymphocytes # (0.6-4.6) K/mcL Monocytes # (0.0-1.3) K/mcL Eosinophils # (0.0-0.6) K/mcL Basophils # (0.0-0.2) K/mcL Immature Plt Fraction (1.1-6.1) % Sodium (136-145) mEq/L Potassium (3.5-4.5) mEq/L Chloride (98-109) mEq/L Carbon Dioxide (19-29) mEq/L BUN (7-20) mg/dL Creatinine (0.57-1.11) mg/dL Est GFR ( Amer) (> 60) Est GFR (Non-Af Amer) (> 60) BUN/Creatinine Ratio (6-26) Glucose (70-99) mg/dL Calculated Osmolality (280-300) Lactic Acid (0.5-2.2) mmol/L Calcium (8.6-10.8) mg/dL Troponin I 0.01 (0-0.03) ng/mL B-Natriuretic Peptide 13 (0-100) pg/mL - Radiology Data Radiology results reviewed: Yes I reviewed the patient's radiology results. Chest X-Ray 01/31/17 14:28 IMPRESSION: No evidence of acute disease. D/ / Gilmer Irizarry MD / Gilmer Irizarry MD Interpreting Provider: Gilmer Irizarry MD Chest CTA 01/31/17 16:18 IMPRESSION: 1. Suboptimal opacification of subsegmental pulmonary artery branches. Within that limitation, no findings of pulmonary embolism are identified. 2. Mild cardiomegaly. D/ / Vito Light MD / Vito Light MD Interpreting Provider: Vito Light MD - EKG Data EKG attestation: Yes I reviewed and interpreted this EKG. EKG shows normal: Reports: sinus rhythm Rate: Reports: bradycardia Rhythm: Reports: NSR When compared to previous EKG there are: no significant changes (12/03/2016) Interpretation: Reports: no acute changes
[2017-01-31 15:11] LABS: BUN/Creatinine Ratio 14 (6-26); Blood Urea Nitrogen 14 mg/dL (7-20); Calcium 9.2 mg/dL (8.6-10.8); Carbon Dioxide 25 mEq/L (19-29); Chloride 104 mEq/L (98-109); Glucose 89 mg/dL (70-99); Osmolality,Calculated 288 (280-300); Potassium 3.8 mEq/L (3.5-4.5); Sodium 139 mEq/L (136-145); eGFR For African Americans > 60 (> 60); eGFR For Non-African Americans > 60 (> 60)
[2017-01-31] MEDS ORDERED: Ipratropium/Albuterol Neb 3 ML IH ONE (15:13)
[2017-01-31] MEDS ORDERED: *HR* Morphine 2 MG/ML SYRINGE IVP ONE ×2 (16:01→19:52)
[2017-01-31] MEDS ORDERED: Ondansetron 4 MG/2 ML VIAL IVP ONE (16:01)
[2017-01-31] MEDS ORDERED: Naloxone 0.4 MG/ML INJ IVP PRN (20:33)
[2017-01-31] MEDS ORDERED: Ondansetron 4 MG/2 ML VIAL IVP PRN (20:33)
[2017-01-31] MEDS ORDERED: Acetaminophen 325 MG TABLET PO PRN (20:33)
[2017-01-31] MEDS ORDERED: *HR* HYDROcodone/Acet 5/325 mg TABLET PO PRN (20:33)
[2017-01-31] MEDS ORDERED: Loratadine 10 MG TABLET PO PRN (20:41)
[2017-01-31] MEDS ORDERED: Nitroglycerin 0.4 MG TAB.SUBL SL PRN (20:41)
[2017-01-31] MEDS ORDERED: Methocarbamol 750 MG TABLET PO PRN (20:41)
[2017-01-31] MEDS ORDERED: Ibuprofen 600 MG TABLET PO PRN (20:57)
[2017-01-31] MEDS: Pantoprazole 40 MG VIAL IVP SCH (21:20)
[2017-01-31] MEDS: *HR* Heparin 5,000 UNIT/ML VIAL SQ SCH (21:21)
[2017-01-31] MEDS: Gabapentin 300 MG CAPSULE PO SCH (21:21)
[2017-01-31] MEDS: lamoTRIgine 100 MG TABLET PO SCH (21:21)
[2017-01-31] MEDS: Metoprolol XL (24 HR) Succ 25 MG TAB.ER.24H PO SCH (21:22)
[2017-01-31] MEDS: Furosemide 40 MG/4 ML VIAL IVP SCH (22:25)
[2017-01-31] MEDS: ALPRAZolam 0.5 MG TABLET PO PRN (22:25)
[2017-01-31] MEDS: Hyoscyamine SL 0.125 MG TAB.SUBL PO SCH (22:25)
--- NOTE | 2017-01-31 22:25 | Internal Med History&Physical ---
Date of Encounter: 02/01/17 Time of Encounter: 17:00 Assessment and Plan (1) Acute exacerbation of CHF (congestive heart failure) Current visit: Yes Status: Acute Patient presents with acute exacerbation of CHF based on current symptoms of fluid overload, bilateral pedal edema, and shortness of breath/dyspnea which is worsened over the past 2 weeks. Patient recently diagnosed with CHF and placed on by mouth 20 mg Lasix daily. 40 mg IVP Lasix twice a day ordered. Patient to be placed on continuous cardiac telemetry with supplemental O2 and SPO2 monitoring. Will monitor patient's I&O and daily weight. Fluid restriction diet 1.5 L daily. Cardiology consult ordered and the ED. turn out worker consult ordered to assess patient for home oxygen needs. We will monitor patient for increasing signs of cardiac and/or respiratory distress. Qualifiers: Congestive heart failure type: unspecified congestive heart failure type Qualified Code(s): I50.9 - Heart failure, unspecified (2) Chest pain Current visit: Yes Status: Acute Patient presents with acute chest pain that she describes as intermittent over the past 2 weeks and becoming worse symptomatically with coinciding SOB. This is most likely related to acute exacerbation of patient's CHF. Initial troponin on admission was 0.01. Trend troponin 2. Patient placed on continuous cardiac telemetry. Patient had recent workup in the last month for cardiac related symptoms which included a negative nuclear stress test with an EF of 60% and an echocardiogram showing EF of 60%. CT of the chest today was negative for PE. Will monitor patient closely. Qualifiers: Chest pain type: unspecified Qualified Code(s): R07.9 - Chest pain, unspecified (3) Dyspnea Current visit: Yes Status: Acute Patient presents with acute dyspnea related to current acute exacerbation of CHF. Supplemental O2 with titration if SPO2 monitoring less than 92% ordered. Continuous SpO2 monitoring. DuoNebs Q4 scheduled. IVP lasix 40 mg BID ordered. Qualifiers: Dyspnea type: unspecified Qualified Code(s): R06.00 - Dyspnea, unspecified (4) GERD (gastroesophageal reflux disease) Current visit: Yes Status: Chronic Patient presents with history of chronic GERD. IVP Zofran every 6 when necessary ordered. IVP Protonix 40 mg twice a day ordered. Qualifiers: Esophagitis presence: esophagitis presence not specified Qualified Code(s) : K21.9 - Gastro-esophageal reflux disease without esophagitis (5) History of pulmonary embolus (PE) Current visit: Yes Status: Chronic Patient presents with history previous pulmonary embolus. CT of the chest today shows suboptimal opacification of subsegmental pulmonary artery branches. Within that limitation, no findings of pulmonary embolism are identified. Mild cardiomegaly. (6) DVT prophylaxis Current visit: Yes Status: Acute Patient to be placed on DVT prophylaxis due to current admission protocol and current symptoms. Heparin 5000 units SQ every 8 ordered. Internal Medicine - H&P: HPI Chief complaint: SOB/Dyspnea/Chest pain Admitted From: Emergency Dept Plans for Post Hospital Care: Home History of present illness: Ms. Brown is a 42 year old female with medical history of arthritis, CHF, GERD, hypertension, and migraine who presents today to the ED with chief complaint of shortness of breath, dyspnea, and chest pain. Patient had a recent workup in the last 2 months which included a negative nuclear stress test with an EF of 62 % and an echocardiogram which showed an EF of 60% CTA of the chest today was negative for PE. Patient denies recent illness, fever, chills, weakness, changes in vision, palpitations, cough, abdominal pain, nausea, vomiting, diarrhea, constipation, unusual bleeding, weakness, presyncope, or syncope. Patient states she is a never smoker. Patient states chest pain has been intermittent for the past 2 weeks that became worse on . Patient also reports her lower extremities became swollen during the same time period. Patient reports she was recently diagnosed with CHF and placed on 20 mg of Lasix by mouth daily. On examination, patient's bilateral LEs show nonpitting edema. On auscultation, patient has bilateral wheezes and appears to be fluid overloaded. On admission patient's pulse rate was 93 206, most likely related to current SOB. Initial troponin in ED 0.01. Ms. Brown is a moderate risk for further respiratory and cardiac distress based on current symptoms and risk factors and we placed this observation status. Information obtained from patient, chart review, and previous medical records. Patient is currently hemodynamically stable and in no acute distress. Time spent with patient >40 minutes. Past Med Surg Social Fam HX - Past Medical History Source: patient, old records reviewed Medical history: arthritis, CHF, hypertension, migraine Psychiatric history: anxiety, bipolar, depression - Past Surgical History Surgical History: cholecystectomy, other (Tonsillectomy, adenoidectomy, bilateral ear tubes) - Social History Smoking Status: Never smoker Smokeless Tobacco Status: Yes Alcohol use: none Drug use: none Current living situation: Home, With Family Activity Level: Independent ambulation Recent Out of Country Travel Within the Last 8 Weeks: No Exposure or Possible Exposure to Illness During Travel: No - Family History Mother Age: 65 Race: Family Member Ethnicity: Non- Living Status: Still Living Hx Family Cardiac Disorders: Yes (HD, [place], Angioplasty with stents x13) Hx Family Endocrine Disorder: Yes (DM) Father Race: Family Member Ethnicity: Non- Living Status: Still Living Hx Family Cardiac Disorders: Yes (Afib, [place] x2, HTN, HLD) Brother History Unknown: Yes Race: Family Member Ethnicity: Non- Living Status: Still Living Internal Medicine - H&P: Meds ALPRAZolam [Xanax 0.5 MG Tablet] 0.5 mg PO TID PRN 11/04/16 [History] Albuterol Sulfate [Ventolin Hfa] 2 puff IH Q4H PRN 11/04/16 [History] Calcium Carbonate/Vitamin D3 [Calcium 500 + Vit D Caplet] 1 each PO BID [History] Cetirizine HCl [All Day Allergy] 10 mg PO DAILY PRN 11/04/16 [History] Cholecalciferol (D-3) [Vitamin D] 2,000 unit PO DAILY 11/04/16 [History] Fluticasone Propionate [Flovent Hfa] 1 puff IH BID 11/04/16 [History] Ibuprofen 800 mg PO TID PRN 11/04/16 [History] Losartan Potassium [Cozaar] 50 mg PO QAM 11/04/16 [History] Methocarbamol [Robaxin] 750 mg PO Q4H PRN 11/04/16 [History] Nitroglycerin [Nitrostat] 0.4 mg SL Q5M PRN 11/04/16 [History] Omeprazole [PriLOSEC] 40 mg PO QAM 11/04/16 [History] Quetiapine Fumarate [Seroquel] 400 mg PO HS 11/04/16 [History] Ranitidine HCl [Zantac] 300 mg PO HS 11/04/16 [History] lamoTRIgine [Lamictal] 100 mg PO QAM 11/04/16 [History] Amitriptyline HCl 150 mg PO HS 12/02/16 [History] Ferrous Sulfate [High Potency Iron] 134 mg PO DAILY 12/02/16 [History] Hyoscyamine Sulfate [Hyoscyamine Sulfate ER] 0.375 mg PO Q12H 12/02/16 [History] lamoTRIgine [Lamictal] 200 mg PO HS 12/02/16 [History] Atorvastatin [Lipitor] 40 mg PO HS 01/31/17 [History] Furosemide [Lasix] 20 mg PO DAILY 01/31/17 [History] Gabapentin [Neurontin] 300 mg PO TID 01/31/17 [History] Metoprolol XL (24 HR) Succ [Toprol XL] 25 mg PO HS 01/31/17 [History] Paliperidone [Paliperidone ER] 3 mg PO DAILY 01/31/17 [History] Promethazine [Phenergan] 25 mg PO BID PRN 01/31/17 [History] 3 Allergy/AdvReac Type Severity Reaction Status Date / Time Penicillins Allergy See Verified 01/31/17 14:28 Comments All Systems PM: A 10-system review of systems was performed and is negative for pertinent findings except as documented above in the HPI. - Constitutional Constitutional: no chills, no fever(s), no night sweats - EENT Eyes: no change in vision, no discharge, no pain, no photophobia Ears: no ear discharge, no ear pain, no tinnitus Nose, mouth and throat: no dysphagia, no nasal discharge, no neck pain, no sore throat - Breasts Breasts: as per HPI - Cardiovascular Cardiovascular ROS IM: as per HPI, chest pain, dyspnea, dyspnea on exertion, irregular heart rhythm (Tachycardia) - Respiratory Respiratory: as per HPI, dyspnea, dyspnea on exertion, wheezing - Gastrointestinal Gastrointestinal: no abdominal pain, no diarrhea, no hematemesis, no hematochezia, no melena, no nausea, no vomiting - Genitourinary Genitourinary: no change in urinary stream, no dysuria, no flank pain, no hematuria Menstruation: as per HPI - Musculoskeletal Musculoskeletal ROS IM: no numbness, no tingling - Integumentary Integumentary IM: no rash, no unusual bruising - Neurological Neurological ROS: no confusion, no convulsions, no focal weakness, no numbness, no tingling, no tremor(s) - Psychiatric Psychiatric: as per HPI - Endocrine Endocrine IM: as per HPI - Hematologic/Lymphatic Hematologic/Lymphatic: no easy bruising - Allergic/Immunologic Allergic/Immunologic: as per HPI - Constitutional Vitals: Temp Pulse Resp BP Pulse Ox 97.8 F 101 20 137/87 99 01/31/17 20:22 01/31/17 20:22 01/31/17 20:22 01/31/17 20:22 01/31/17 20:22 General appearance: Present: cooperative, mild distress, A&O X 3, morbidly obese , pleasant, answers questions appropriately - Head Head exam: Present: atraumatic, normocephalic - Eye Eye exam: Present: PERRL, conjuntiva pink, sclera anicteric Pupils: Present: PERRL - ENT ENT exam: Present: normal exam, normal external ear exam, normal oropharynx - Neck Neck exam general surgery: Present: normal inspection, supple, trachea midline. Absent: lymphadenopathy - Respiratory Respiratory exam: Present: accessory muscle use, respiratory distress (Mild), wheezes - Cardiovascular Cardiovascular exam: Present: tachycardia - GI/Abdominal GI/Abdominal exam: Present: normal bowel sounds, soft, no peritoneal signs. Absent: distended, tenderness - Rectal Rectal exam: Present: deferred - Additional comments: exam deferred. - Extremities Exam Extremities exam: Present: warm, radial pulses palpable and symmetrical. Absent : calf tenderness, cyanotic, pedal edema - Back Exam Back exam: Present: normal inspection - Neurological Exam Neurological exam: Present: CN II-XII intact, oriented X3, no focal deficits. Absent: pronater drift, facial droop, speech deficit - Psychiatric Psychiatric exam: Present: normal affect, normal mood - Skin Skin exam: Present: dry, intact Internal Med - H&P Results - Labs CBC & Chem 7: 01/31/17 14:51 01/31/17 14:51 Labs: Cardiac Enzymes 01/31/17 Range/Units 20:50 Troponin I 0.02 (0-0.03) ng/mL - EKG Data EKG shows normal: sinus rhythm Rate: tachycardia - EKG Data Prior EKG available for review: yes When compared to previous EKG: there is no significant change EKG comments: 02/01/17 01:08 EKG dated 12/03/16 shows sinus rhythm. EKG dated 01/31/17 shows sinus tachycardia and abnormal rhythm ECG. - Diagnostic Studies Chest x-ray Additional comments: Impressions Chest X-Ray 01/31/17 14:28 IMPRESSION: No evidence of acute disease. D/ / Gilmer Irizarry MD / Gilmer Irizarry MD Interpreting Provider: Gilmer Irizarry MD Other Images Additional comments: Impressions Chest CTA 01/31/17 16:18 IMPRESSION: 1. Suboptimal opacification of subsegmental pulmonary artery branches. Within that limitation, no findings of pulmonary embolism are identified. 2. Mild cardiomegaly. D/ / Vito Light MD / Vito Light MD Interpreting Provider: Vito Light MD
[2017-01-31] MEDS: *HR* Morphine 2 MG/ML SYRINGE IVP PRN (23:25)
[2017-02-01] MEDS: *HR* Morphine 2 MG/ML SYRINGE IVP PRN ×5 (04:05→21:30)
[2017-02-01 04:36] LABS: Basophils % 0.6 %; Eosinophils # 0.1 K/mcL (0.0-0.6); Eosinophils % 1.5 %; Hematocrit 36.3 % (35.3-44.9); Hemoglobin 11.2 g/dL (11.5-15.4); Immature Granulocytes % 0.4 % (0-4); Lymphocytes # 1.5 K/mcL (0.6-4.6); Lymphocytes % 32.5 %; Mean Corpuscular HGB Conc 30.9 g/dL (31.6-35.5); Mean Corpuscular Hemoglobin 27.5 pg (28.0-33.3); Mean Corpuscular Volume 89.2 fL (83.0-100.0); Mean Platelet Volume 10.1 fL (9.4-12.4); Monocytes # 0.6 K/mcL (0.0-1.3); Monocytes % 13.3 %; Neutrophils # 2.4 K/mcL (1.6-8.9); Platelet Count 243 K/mcL (140-400); Red Blood Count 4.07 M/mcL (3.82-4.97); Red Cell Distribution Width 13.6 % (11.5-14.5); Segmented Neutrophils % 51.7 %
[2017-02-01 04:38] LABS: INR 1.1
[2017-02-01 04:41] LABS: Hemoglobin A1C 4.8 %
[2017-02-01 04:54] LABS: BUN/Creatinine Ratio 10 (6-26); Blood Urea Nitrogen 12 mg/dL (7-20); Carbon Dioxide 28 mEq/L (19-29); Chloride 101 mEq/L (98-109); Chol/HDL Ratio 7.1 (0-4.9); Cholesterol 205 mg/dL (< 200); Glucose 112 mg/dL (70-99); HDL Cholesterol 29 mg/dL (40-59); LDL Cholesterol,Calculated 143 mg/dL (0-99); Magnesium 1.7 mg/dL (1.6-2.6); Osmolality,Calculated 287 (280-300); Potassium 3.6 mEq/L (3.5-4.5); Sodium 138 mEq/L (136-145); Triglycerides 166 mg/dL (< 150); eGFR For African Americans > 60 (> 60); eGFR For Non-African Americans 51 (> 60)
[2017-02-01] MEDS: *HR* Heparin 5,000 UNIT/ML VIAL SQ SCH ×3 (05:56→21:01)
[2017-02-01] MEDS: Hyoscyamine SL 0.125 MG TAB.SUBL PO SCH ×2 (08:42→20:50)
[2017-02-01] MEDS: Pantoprazole 40 MG VIAL IVP SCH ×2 (08:42→20:51)
[2017-02-01] MEDS: Furosemide 40 MG/4 ML VIAL IVP SCH (08:42)
[2017-02-01] MEDS: Gabapentin 300 MG CAPSULE PO SCH ×3 (08:42→20:51)
[2017-02-01] MEDS: lamoTRIgine 100 MG TABLET PO SCH ×2 (08:43→20:50)
[2017-02-01] MEDS: Cholecalciferol (D-3) 1,000 UNIT TABLET PO SCH (08:43)
--- NOTE | 2017-02-01 09:19 | Cardiology Consult Note ---
Date of Encounter: 02/01/17 Time of Encounter: 09:00 Assessment and Plan (1) Chest pain Current Visit: Yes Status: Acute Presents with atypical chest pain. Troponin negative x3. No ischemic ECG changes. Multiple admissions/ED evaluations for chest pain. Recent negative nuclear stress test November 2016. TTE 01/29/17 shows preserved LVEF with normal wall motion. Risk factors for CAD include: HTN, HLD, obesity, and positive family hx-- premature CAD mother with reported MD in early 40's s/p multiple stents/CABG; father with reported MD x2. Due to recurrent chest pain discussed trial of medical management vs. LHC; at this point, patient wants to proceed with LHC. Alternatives, risks, and benefits discussed, she is agreeable to proceed. Will further discuss and reviewed with Dr. Romario oNonan. Continue statin and betablocker; will add asa 81 mg daily. Qualifiers: Chest pain type: unspecified Qualified Code(s): R07.9 - Chest pain, unspecified (2) Dyspnea Current Visit: Yes Status: Acute Appears euvolemic upon exam. SCr bump overnight, will stop IV lasix. TTE 01/29/17: LVEF 60% with mild diastolic dysfunction. BNP 13 upon presentation. CXR negative for acute abnormality. Qualifiers: Dyspnea type: shortness of breath Qualified Code(s): R06.02 - Shortness of breath; R06.00 - Dyspnea, unspecified; R06.01 - Orthopnea Discussion w patient/family: The assessment and plan as outlined above was discussed with the patient and/or family members who expressed understanding and agreement. All questions were answered. Thank you for involving us in the care of your patient. Please call with any questions. The patient will be discussed and reviewed with Dr. Romario Noonan; changes to be made accordingly. History of Present Illness Consult date: 02/01/17 Requesting physician: Johan Moncada Consult reason: Chest pain Chief complaint: Chest pain, shortness of breath History of present illness: Ms. Brown is a 42 year old female with PMHx significant for HTN, HLD, and morbid obesity who presented to the ED with 2 week history of shortness of breath. Associated symptoms include fatigue and lower extremity edema; she report she gained nearly 20 lbs in 1 week. Also notes episode of chest discomfort that occurred yesterday--was constant, non-radiating and left-sided. Symptoms improved with oxygen administration in the ED. Reports multiple episodes of chest pain over the past month; symptoms do not always correlate with exertion. Upon arrival to ED, initial troponin was negative. No ischemic ECG changes were noted. Prior CV testing: TTE 01/29/17: LVEF 60%, mild LVDD, mildly dilated RV with normal function, no PH, normal wall motion Non-exercise stress test (2-day) 12/04/16: perfusion imaging negative for ischemia or infarct, gated EF=62% Past Med Surg Social Fam HX - Past Medical History Attestation: Yes The following information was validated with the patient. Source: patient, old records reviewed Medical history: arthritis, hyperlipidemia, hypertension, migraine Psychiatric history: anxiety, bipolar, depression - Past Surgical History Surgical History: cholecystectomy, other (Tonsillectomy, adenoidectomy, bilateral ear tubes) - Social History Smoking Status: Never smoker Smokeless Tobacco Status: Yes Alcohol use: none Drug use: none - Family History Mother Age: 65 Race: Family Member Ethnicity: Non- Living Status: Still Living Hx Family Cardiac Disorders: Yes (HD, MD, Angioplasty with stents x13) Hx Family Endocrine Disorder: Yes (DM) Father Race: Family Member Ethnicity: Non- Living Status: Still Living Hx Family Cardiac Disorders: Yes (Afib, MD x2, HTN, HLD) Brother History Unknown: Yes Race: Family Member Ethnicity: Non- Living Status: Still Living Medications and Allergies ALPRAZolam [Xanax 0.5 MG Tablet] 0.5 mg PO TID PRN 11/04/16 [History] Albuterol Sulfate [Ventolin Hfa] 2 puff IH Q4H PRN 11/04/16 [History] Calcium Carbonate/Vitamin D3 [Calcium 500 + Vit D Caplet] 1 each PO BID [History] Cetirizine HCl [All Day Allergy] 10 mg PO DAILY PRN 11/04/16 [History] Cholecalciferol (D-3) [Vitamin D] 2,000 unit PO DAILY 11/04/16 [History] Fluticasone Propionate [Flovent Hfa] 1 puff IH BID 11/04/16 [History] Ibuprofen 800 mg PO TID PRN 11/04/16 [History] Losartan Potassium [Cozaar] 50 mg PO QAM 11/04/16 [History] Methocarbamol [Robaxin] 750 mg PO Q4H PRN 11/04/16 [History] Nitroglycerin [Nitrostat] 0.4 mg SL Q5M PRN 11/04/16 [History] Omeprazole [PriLOSEC] 40 mg PO QAM 11/04/16 [History] Quetiapine Fumarate [Seroquel] 400 mg PO HS 11/04/16 [History] Ranitidine HCl [Zantac] 300 mg PO HS 11/04/16 [History] lamoTRIgine [Lamictal] 100 mg PO QAM 11/04/16 [History] Amitriptyline HCl 150 mg PO HS 12/02/16 [History] Ferrous Sulfate [High Potency Iron] 134 mg PO DAILY 12/02/16 [History] Hyoscyamine Sulfate [Hyoscyamine Sulfate ER] 0.375 mg PO Q12H 12/02/16 [History] lamoTRIgine [Lamictal] 200 mg PO HS 12/02/16 [History] Atorvastatin [Lipitor] 40 mg PO HS 01/31/17 [History] Furosemide [Lasix] 20 mg PO DAILY 01/31/17 [History] Gabapentin [Neurontin] 300 mg PO TID 01/31/17 [History] Metoprolol XL (24 HR) Succ [Toprol XL] 25 mg PO HS 01/31/17 [History] Paliperidone [Paliperidone ER] 3 mg PO DAILY 01/31/17 [History] Promethazine [Phenergan] 25 mg PO BID PRN 01/31/17 [History] 3 Allergy/AdvReac Type Severity Reaction Status Date / Time Penicillins Allergy See Verified 01/31/17 14:28 Comments All Systems Review: A 10-system review of systems was performed and is negative for pertinent findings except as documented above in the HPI. - Cardiovascular Cardiovascular: as per HPI Physical Examination Vital Signs, Last 4 Hours Temp Pulse Resp BP Pulse Ox 02/01/17 07:37 97.5 F L 75 16 132/73 96 General: Conversant, No Apparent Distress, Other (morbidly obese) HEENT: Atraumatic, Normocephaly, Mucus Membranes Moist Cardiac: Reg Rate and Rhythm, Normal S1 and S2 Lungs: Normal Breath Sounds Neuro: Alert and responsive Abdomen: Soft Skin: No rashes noted on visualized skin Musculoskeletal: No Chest Wall Tenderness Extremities: Other (non-pitting BLE edema) Results 02/01/17 03:50 02/01/17 03:50 Lab Results 01/31/17 02/01/17 02/01/17 20:50 03:50 03:50 WBC 4.7 Hgb 11.2 L Hct 36.3 Plt Count 243 INR APTT Sodium Potassium Chloride Carbon Dioxide BUN Creatinine Glucose Calcium Magnesium Troponin I 0.02 0.02 02/01/17 02/01/17 03:50 03:50 WBC Hgb Hct Plt Count INR 1.1 APTT 32.0 Sodium 138 Potassium 3.6 Chloride 101 Carbon Dioxide 28 BUN 12 Creatinine 1.18 H Glucose 112 H Calcium 9.0 Magnesium 1.7 Troponin I Active Medications Acetaminophen (Tylenol) 650 mg PO Q6HR PRN PRN Reason: Mild Pain (1-3) Stop: 08/02/17 20:34 Hydrocodone Bitart/Acetaminophen (Lyerly 5-325 Mg) 1 tab PO Q4HR PRN PRN Reason: Moderate Pain (4-6) Stop: 08/02/17 20:34 Last Admin: 02/01/17 05:56 Dose: 1 tab Alprazolam (Xanax) 0.5 mg PO TID PRN; Protocol PRN Reason: Anxiety Stop: 08/02/17 20:42 Last Admin: 01/31/17 22:25 Dose: 0.5 mg Amitriptyline HCl (Elavil) 150 mg PO HS JOSH Stop: 08/02/17 21:01 Last Admin: 01/31/17 22:25 Dose: 150 mg Atorvastatin Calcium (Lipitor) 40 mg PO HS JOSH Stop: 08/02/17 21:01 Last Admin: 01/31/17 21:21 Dose: 40 mg Ferrous Sulfate (Ferrous Sulfate) 325 mg PO DAILY JOSH Stop: 08/03/17 09:01 Last Admin: 02/01/17 08:42 Dose: 325 mg Furosemide (Lasix) 40 mg IVP BIDDIURETIC JOSH Stop: 08/02/17 21:01 Last Admin: 02/01/17 08:42 Dose: 40 mg Gabapentin (Neurontin) 300 mg PO TID JOSH Stop: 08/02/17 21:01 Last Admin: 02/01/17 08:42 Dose: 300 mg Heparin Sodium (Porcine) (Heparin) 5,000 unit SQ Q8HCO [facility] Stop: 08/02/17 22:01 Last Admin: 02/01/17 05:56 Dose: 5,000 unit Hyoscyamine (Levsin Sl) 0.375 mg PO Q12H [facility] Stop: 08/02/17 20:46 Last Admin: 02/01/17 08:42 Dose: 0.375 mg Ibuprofen (Motrin) 600 mg PO Q8HR PRN; Protocol PRN Reason: Chest Pain Stop: 08/02/17 20:58 Last Admin: 01/31/17 21:21 Dose: 600 mg [facility]otrigine ([facility]ictal) [facility] [place] Stop: 08/03/17 09:01 Last Admin: 02/01/17 08:43 Dose: 100 mg Lamotrigine (Lamictal) [address] [facility] Stop: 08/02/17 21:01 Last Admin: 01/31/17 21:21 Dose: 200 mg Loratadine (Claritin) 10 mg PO DAILY PRN PRN Reason: Allergy Symptoms Losartan Potassium (Cozaar) 50 mg PO [facility] Stop: 08/03/17 09:01 Last Admin: 02/01/17 08:42 Dose: 50 mg Methocarbamol (Robaxin) 750 mg PO Q4H PRN PRN Reason: Muscle Pain Stop: 08/02/17 20:42 Metoprolol Succinate (Toprol Xl) [address] [facility] Stop: 08/02/17 21:01 Last Admin: 01/31/17 21:22 Dose: 25 mg Morphine Sulfate (Morphine Sulfate) 2 mg IVP Q4HR PRN PRN Reason: Severe Pain (7-10) Stop: 08/02/17 20:34 Last Admin: 02/01/17 08:43 Dose: 2 mg Naloxone HCl (Narcan) 0.4 mg IVP Q2MIN PRN PRN Reason: Opioid Reversal Stop: 08/02/17 20:34 Nitroglycerin (Nitroglycerin) 0.4 mg SL Q5MIN PRN PRN Reason: Chest Pain Stop: 08/02/17 20:42 Ondansetron HCl (Zofran) 4 mg IVP Q8HR PRN PRN Reason: Nausea And Vomiting Stop: 08/02/17 20:34 Paliperidone (Invega) 3 mg PO DAILY JOSH Stop: 08/03/17 09:01 Last Admin: 02/01/17 08:42 Dose: 3 mg Pantoprazole Sodium (Protonix) 40 mg IVP BID [facility] Stop: 08/02/17 21:01 Last Admin: 02/01/17 08:42 Dose: 40 mg Quetiapine Fumarate (Seroquel) 400 mg PO HS [facility] Stop: 08/02/17 21:01 Last Admin: 01/31/17 22:24 Dose: 400 mg Vitamin D (Vitamin D) 1,000 unit PO DAILY JOSH Stop: 08/03/17 09:01 Last Admin: 02/01/17 08:43 Dose: 1,000 unit - Imaging and Cardiology Chest Xray: report reviewed Stress Test: report reviewed Echo: report reviewed Other Results: 12 hour tele: avg HR=78 SR. No significant event noted. - EKG Interpretation EKG results cardiology: personally reviewed Consult Discharge Plan - Plan Referrals: Jamey Leroy MD [Primary Care Provider] -
[2017-02-01] MEDS: Aspirin 81 MG TAB.CHEW PO SCH (11:43)
--- NOTE | 2017-02-01 13:56 | Internal Med Progress Note ---
Date of Encounter: 02/01/17 Time of Encounter: 11:05 - Assessment and plan (1) Chest pain Current Visit: Yes Status: Acute Assessment and plan: Patient reports 2 week history of left chest pain that is becoming progressively worse over time. She reports a constant ache that is a 6 out of 10 with intermittent sharp pain that becomes an 8 out of 10 anytime she has exertion or is without her O2. She reports nausea since yesterday morning and a nonproductive cough times the last 2 days. Echocardiogram on January 29 showed LVEF of 60%, mild LV DD and no significant valvular dysfunction. Patient had a stress test is negative for ischemia or infarct with a gaited EF of 62%. Patient denies chest pain currently. Cardiology has evaluated and will have [facility] tomorrow. Continue hub lead labs Monitor vital signs Continue home medications aspirin, Lipitor, beta mauricio Qualifiers: Chest pain type: unspecified Qualified Code(s): R07.9 - Chest pain, unspecified (2) Uncontrolled hypertension Current Visit: No Status: Chronic Assessment and plan: Well-controlled in inpatient setting. Continue home medications. (3) Migraine Current Visit: No Status: Chronic Assessment and plan: Per patient history. Continue home medications. Pain control as needed. Qualifiers: Migraine type: without aura Status migrainosus presence: without status migrainosus Intractability: not intractable Qualified Code(s): G43.009 - Migraine without aura, not intractable, without status migrainosus (4) Acute exacerbation of CHF (congestive heart failure) Current Visit: Yes Status: Acute Assessment and plan: Patient presents with fluid overload, bilateral lower extremity edema, shortness of breath which has worsened over the last 2 weeks. Patient was recently diagnosed with CHF and placed on Lasix at home. Patient also reports intermittent chest pain over the last 2 weeks but incidentally coincides with CHF diagnosis and shortness of breath increase. Echocardiogram on January 29 showed LVEF of 60%, mild LV DD and no significant valvular dysfunction. Patient had a stress test is negative for ischemia or infarct with a gaited EF of 62%. BNP is 13. Chest x-ray shows no evidence of acute disease. CTA chest was negative for PE, positive for mild cardiomegaly. Continue IV Lasix 40 mg twice daily Continue telemetry continue supplemental oxygen and titrate to maintain sats greater than 92% Pulse ox Monitor I and O and daily weights Fluid restriction, low sodium diet Cardiology on board. Qualifiers: Congestive heart failure type: diastolic Qualified Code(s): I50.33 - Acute on chronic diastolic (congestive) heart failure (5) Dyspnea Current Visit: Yes Status: Acute Assessment and plan: Plan as above Qualifiers: Dyspnea type: shortness of breath Qualified Code(s): R06.02 - Shortness of breath; R06.00 - Dyspnea, unspecified; R06.01 - Orthopnea (6) GERD (gastroesophageal reflux disease) Current Visit: Yes Status: Chronic Assessment and plan: Chronic. continue home medications. Qualifiers: Esophagitis presence: esophagitis presence not specified Qualified Code(s) : K21.9 - Gastro-esophageal reflux disease without esophagitis (7) DVT prophylaxis Current Visit: Yes Status: Acute Assessment and plan: Heparin SQ - Time Spent With Patient less than 15 minutes - Subjective Interval history: Patient was seen and assessed the left [address] Noonan was in the room discussing plan of care when I entered, she will have [facility] tomorrow. She reports left chest pain for the last 2 weeks that she describes as a constant ache with sharp pain with exertion and when she is not wearing her oxygen. She rates it a constant 6/10 that becomes an 8/10 with exertion. She reports a nonproductive cough for the last 2 days and nausea since yesterday morning. She does not normally wear oxygen at home but would like to try to qualify for that. She was diagnosed recently with CHF and her primary care office and has peripheral edema that is about +2-3 nonpitting. - Constitutional Vitals: Temp Pulse Resp BP Pulse Ox 97.4 F L 76 16 116/79 100 02/01/17 11:33 02/01/17 11:33 02/01/17 11:33 02/01/17 11:33 02/01/17 11:33 General appearance: Present: cooperative, mild distress, A&O X 3, morbidly obese , pleasant, answers questions appropriately - Head Head exam: Present: atraumatic, normal inspection, normocephalic - Eye Eye exam: Present: normal appearance, conjuntiva pink - ENT ENT exam: Present: mucous membranes moist, normal exam, normal oropharynx - Neck Neck exam general surgery: Absent: lymphadenopathy, tenderness - Respiratory Respiratory exam: Present: chest wall tenderness. Absent: rales, rhonchi, stridor, wheezes - Cardiovascular Cardiovascular exam: Present: RRR, +S1, +S2. Absent: diastolic murmur, systolic murmur - GI/Abdominal GI/Abdominal exam: Present: normal bowel sounds. Absent: distended, rigid, splenomegaly - Extremities Exam Extremities exam: Present: full ROM, normal capillary refill, normal inspection. Absent: radial pulses palpable and symmetrical - Neurological Exam Neurological exam: Present: alert, oriented X3, no focal deficits. Absent: facial droop, speech deficit Internal Medicine: Result - Labs CBC & Chem 7: 02/01/17 03:50 02/01/17 03:50 Labs: Short CBC 02/01/17 Range/Units 03:50 WBC 4.7 (4.3-11.1) K/mcL Hgb 11.2 L (11.5-15.4) g/dL Hct 36.3 (35.3-44.9) % Plt Count 243 (140-400) K/mcL Neutrophils # 2.4 (1.6-8.9) K/mcL BMP 02/01/17 03:50 Sodium 138 Potassium 3.6 Chloride 101 Carbon Dioxide 28 BUN 12 Creatinine 1.18 H Glucose 112 H Calcium 9.0 Cardiac Enzymes 01/31/17 02/01/17 Range/Units 20:50 03:50 Troponin I 0.02 0.02 (0-0.03) ng/mL - ABG Interpretation ABG results: PT/INR, D-dimer PT 12.0 Seconds (9.4-12.1) 02/01/17 03:50 Consult Discharge Plan - Plan Referrals: Jamey Leryo MD [Primary Care Provider] -
[2017-02-01] MEDS: Metoprolol XL (24 HR) Succ 25 MG TAB.ER.24H PO SCH (20:51)
[2017-02-01] MEDS: ALPRAZolam 0.5 MG TABLET PO PRN (23:21)
[2017-02-02] MEDS ORDERED: 0.9 % Sodium Chloride 500 ML IVC ONE (02:55)
[2017-02-02] MEDS: *HR* Morphine 2 MG/ML SYRINGE IVP PRN ×2 (05:11→15:12)
[2017-02-02] MEDS: *HR* Heparin 5,000 UNIT/ML VIAL SQ SCH ×3 (05:11→20:50)
[2017-02-02 06:44] LABS: Albumin/Globulin Ratio 0.8 (1.1-2.2); Bilirubin,Total 0.7 mg/dL (0.2-1.2); Calcium 9.2 mg/dL (8.6-10.8); Magnesium 1.8 mg/dL (1.6-2.6); Potassium 4.4 mEq/L (3.5-4.5)
[2017-02-02] MEDS: Cholecalciferol (D-3) 1,000 UNIT TABLET PO SCH (08:07)
[2017-02-02] MEDS: Pantoprazole 40 MG VIAL IVP SCH ×2 (08:07→20:53)
[2017-02-02] MEDS: Gabapentin 300 MG CAPSULE PO SCH ×3 (08:07→20:52)
[2017-02-02] MEDS: lamoTRIgine 100 MG TABLET PO SCH ×2 (08:07→20:52)
[2017-02-02] MEDS: Hyoscyamine SL 0.125 MG TAB.SUBL PO SCH ×2 (08:07→20:52)
[2017-02-02] MEDS: Aspirin 81 MG TAB.CHEW PO SCH (08:07)
--- NOTE | 2017-02-02 11:23 | Internal Med Progress Note ---
Date of Encounter: 02/02/17 Time of Encounter: 09:30 - Assessment and plan (1) Chest pain Current Visit: No Status: Acute Assessment and plan: On examination, patient initially asleep and awakened easily to voice. She continues to complain of left-sided chest pain. Of note, on examination, patient is drowsy, slurring her speech, and intermittently falling asleep in the middle of her sentences. Yet she is still requesting more pain medication. Chest x-ray negative. CTA negative. Troponins negative 3 Patient had stress test and echocardiogram 2 months ago. Cardiology on board, plans for left heart catheter later today. ITS Impressions Chest X-Ray 01/31/17 14:28 IMPRESSION: No evidence of acute disease. D/ / Gilmer Irizarry MD / Gilmer Irizarry MD Interpreting Provider: Gilmer Irizarry MD Chest CTA 01/31/17 16:18 IMPRESSION: 1. Suboptimal opacification of subsegmental pulmonary artery branches. Within that limitation, no findings of pulmonary embolism are identified. 2. Mild cardiomegaly. D/ / Vito Light MD / Vito Light MD Interpreting Provider: Vito Light MD Echo with Imaging Enhancement Agent Date of Study: 01/29/2017 Impressions: LVEF 60%. Normal LV chamber size, wall thickness and function. Mild left ventricular diastolic dysfunction. Mildly dilated right ventricle with normal function. No significant valvular dysfunction. No evidence of pulmonary hypertension. Regadenosen nuclear 2 day stress test impression 12/04/16: Perfusion imaging was negative for ischemia or infarct. Pharmacologic ECG was negative for ischemia at the level of heart rate achieved. Patient had chest pain throughout procedure. Gated ejection fraction equals 60%. (2) Stable angina Current Visit: No Status: Suspected (3) Acute exacerbation of CHF (congestive heart failure) Current Visit: Yes Status: Acute Assessment and plan: Acute on chronic diastolic heart failure with preserved ejection fraction. On examination, patient appears euvolemic though difficult to ascertain given her BMI of 55. No pedal edema noted. Lungs are clear without crackles present. Patient currently endorsing shortness of breath above her norm, will continue to monitor. She is currently on supplemental oxygen, will wean her as she tolerates. Patient presented with fluid overload, bilateral lower extremity edema, shortness of breath which had worsened over the last 2 weeks. Patient was recently diagnosed with CHF and placed on Lasix at home. Echocardiogram on 01/29/17 showed LVEF of 60%, mild LV DD and no significant valvular dysfunction. Patient had a negative stress test a few months ago. As the patient is now euvolemic, we will hold her furosemide and monitor given her acute kidney injury. Strict I's and O's. Cardiology is on board. Left heart catheter today. Qualifiers: Congestive heart failure type: diastolic Qualified Code(s): I50.33 - Acute on chronic diastolic (congestive) heart failure (4) INOCENCIA (acute kidney injury) Current Visit: Yes Status: Acute Assessment and plan: Likely secondary to IV furosemide which has been held. We will also hold ibuprofen. She was given a fluid bolus earlier this morning. Will trend. (5) Knee pain Current Visit: Yes Status: Acute Assessment and plan: Patient stating she now has pain to her left knee. She denies any injuries. She is unable to explain the pain or give a timeframe. Patient is requesting pain medication. She states she has chronic right knee pain. Negative Homans sign. On examination, no limits to her range of motion, no edema, distal pulses intact. Follow-up outpatient. No indication for further inpatient follow-up. (6) History of pulmonary embolus (PE) Current Visit: Yes Status: Chronic Assessment and plan: CTA negative (7) Uncontrolled hypertension Current Visit: No Status: Chronic Assessment and plan: Now controlled with her home medications. We will continue to trend and adjust medications as indicated. (8) Migraine Current Visit: No Status: Chronic Assessment and plan: Per patient history. Continue home medications. Pain control as needed. Qualifiers: Migraine type: without aura Status migrainosus presence: without status migrainosus Intractability: not intractable Qualified Code(s): G43.009 - Migraine without aura, not intractable, without status migrainosus (9) GERD (gastroesophageal reflux disease) Current Visit: Yes Status: Chronic Assessment and plan: Chronic. Denies current symptoms. Continue home omeprazole (10) DVT prophylaxis Current Visit: Yes Status: Acute Assessment and plan: Heparin SQ (11) Morbid obesity with BMI of 50.0-59.9, adult Current Visit: Yes Status: Chronic - Subjective Interval history: Patient seen and examined. On examination, patient resting supine in high rodriguez's. Patient appears drowsy on examination but complains of chest pain as well as left knee pain. She is also endorsing mild shortness of breath above her norm. She is requesting pain medication. - Constitutional Vitals: Temp Pulse Resp BP Pulse Ox 98.2 F 85 17 104/71 96 02/02/17 07:26 02/02/17 07:26 02/02/17 07:26 02/02/17 07:26 02/02/17 07:26 General appearance: Present: cooperative, A&O X 3, morbidly obese, pleasant, no acute distress, answers questions appropriately - Head Head exam: Present: atraumatic, normocephalic - Eye Eye exam: Present: PERRL, conjuntiva pink, sclera anicteric Pupils: Present: PERRL - Neck Neck exam general surgery: Present: supple, trachea midline. Absent: lymphadenopathy - Respiratory Respiratory exam: Present: decreased breath sounds (2/2 body habitus). Absent: accessory muscle use, rales, respiratory distress, rhonchi, wheezes - Cardiovascular Cardiovascular exam: Present: RRR, +S1, +S2. Absent: diastolic murmur, gallop, rubs, systolic murmur - GI/Abdominal GI/Abdominal exam: Present: normal bowel sounds, soft, no peritoneal signs. Absent: distended, tenderness - Extremities Exam Extremities exam: Present: warm, radial pulses palpable and symmetrical. Absent : calf tenderness, cyanotic, pedal edema - Neurological Exam Neurological exam: Present: alert, CN II-XII intact, oriented X3, no focal deficits, strengths equal and symetr throughout. Absent: pronater drift, facial droop, speech deficit - Skin Skin exam: Present: dry, intact, pallor, warm Internal Medicine: Result - Labs CBC & Chem 7: 02/01/17 03:50 02/02/17 06:15 Labs: BMP 02/02/17 06:15 Sodium 136 Potassium 4.4 Chloride 100 Carbon Dioxide 26 BUN 17 Creatinine 1.56 H Glucose 122 H Calcium 9.2 Liver Function 02/02/17 Range/Units 06:15 Total Bilirubin 0.7 (0.2-1.2) mg/dL AST 27 (5-34) Units/L ALT 19 (0-55) Units/L Alkaline Phosphatase 116 (38-126) Units/L Albumin 3.0 L (3.5-5.0) g/dL - ABG Interpretation ABG results: PT/INR, D-dimer PT 12.0 Seconds (9.4-12.1) 02/01/17 03:50 Consult Discharge Plan - Plan Referrals: Jamey Leroy MD [Primary Care Provider] -
[2017-02-02] MEDS ORDERED: Heparin 1,000 UNITS/500 mL NS 500 ML ONE (13:10)
[2017-02-02] MEDS ORDERED: 0.9 % Sodium Chloride 1,000 ML ONE ×2 (13:10→13:13)
[2017-02-02] MEDS ORDERED: *HR* Heparin 10,000 UNIT/10 ML VIAL ONE (13:10)
[2017-02-02] MEDS ORDERED: Nitroglycerin 1,000 MCG/10 ML VIAL IV ONE (13:13)
[2017-02-02] MEDS ORDERED: *HR* Midazolam HCl 2 MG/2 ML VIAL ONE ×2 (13:13→13:48)
--- NOTE | 2017-02-02 13:31 | Pre-Sedation Evaluation ---
Pre-sedation evaluation - Pre-sedation checklist Date of procedure: 02/02/17 Procedure: Left heart cath Recent Vitals: Last Vital Signs Temp 98.1 F 02/02/17 11:48 Pulse 89 02/02/17 11:48 Resp 16 02/02/17 11:48 BP 115/78 02/02/17 11:48 Pulse Ox 100 02/02/17 11:48 H&P (including ROS) documented in medical record: Yes Previous reaction to sedatives/anesthetics: No Dietary Status: NPO after Midnight Airway Assessment: Patient can open mouth completely, TMJ function normal Dentition: No loose teeth or bridges Possible difficult airway: Yes If Yes;: Morbid obesity, Enlarged neck circumference, short neck ASA Classification *see protocol: CLASS III-Severe systemic disease Plan of Care: Pt appropriate candidate for procedure/moderate/conscious sedation , Risks/benefits of procedure/sedation discussed w/ patient/family, If not NPO; Risk of intake outweiged by necessity to perform procedure
--- NOTE | 2017-02-02 14:04 | Event Note ---
Date of Encounter: 02/02/17 Time of Encounter: 14:00 - Cardiology Event Note Reviewed [facility] findings with Dr. Subramanian; non-obstructive CAD. TTE shows preserved EF with normal wall motion and mild diastolic dysfunction. Will defer further work-up/evaluation for dyspnea to primary service. Risk factor modification emphasized including heart healthy diet, daily exercise , and weight loss. No further recommendations from Cardiology; follow-up with PCP as outpatient. Cardiology will sign-off.
--- NOTE | 2017-02-02 14:11 | Invasive Diagnostic Lab Proc ---
Name: Keli Brown Date of Study: 02/02/2017 Date: 1975 Ht: 70.9in Medical Record#: [id number] Age: 42 Wt: 396.83lb Gender: Female BSA: 2.82 Order #: [id number] BMI: 55.56 Physicians Procedure Physician: Sergio Subramanian DO Referring MD: Referring MD: Staff Name Position Time In DanielJuany RN [employer] 01:26 PM Paulo Irizarry RT (R) Scrub 01:29 PM Mary Ann Lockhart RT 01:29 PM Alexa Dumont RN Monitor 01:29 PM Brenna Mcnamara RT (R) 01:31 PM Indications Indication Unstable Angina Procedures Performed Procedure L HRT ARTERY/VENTRICLE ANGIO Pre-Procedure Checklist Informed consent is complete signed and on chart. H&P is on chart. ID band is on and ID verified with patient. Patient NPO for procedure The procedure was described for the patient and questions were answered. Blood Pressure: 104/71 ECG is on chart. Plan of Care Patient will tolerate the procedure without complications. Adequate level of comfort will be maintained. Hemodynamics will remain stable Patient will recover from procedure without complications. Respiratory function will be maintained. Cardiac rhythm will remain stable. Patient temperature will be maintained. Patient and/or family have verbalized understanding of the procedure. Patient Education Chief Complaint/Reason for Test: Cardiac Cath Developmental Category: Adult (18-64 years) Developmentally Appropriate for Age: Yes Learning Barriers: None Education Needs: Procedure Education Method: Verbal Information Taught: Cardiac Cath Educational Evaluation: Able to repeat information Intravenous Access Time IV Size Location DC'd Fluid/Drip Rate Units RN Rt Hand 0.9NaCl ml/hr Rt Antecubital Allergies Penicillins Vital Signs Time BP (mmHg) HR (bpm) O2 Sat. RR (bpm) LOC 104 / 71 85 96 % 17 01:30 PM / % 5 = Fully awake and oriented or at pre-proc level 01:30 PM / % 5 = Fully awake and oriented or at pre-proc level 01:32 PM 126 / 82 123 100 % 26 01:37 PM 126 / 70 92 100 % 17 01:42 PM 129 / 82 91 100 % 16 01:47 PM 132 / 83 87 100 % 7 01:52 PM 134 / 71 91 100 % 17 01:57 PM 143 / 87 83 100 % 15 01:45 PM / % 5 = Fully awake and oriented or at pre-proc level Procedural Medications Time Medication Dose Units Method Given By 01:30 PM Oxygen 2 L/min nasal cannula Juany Sanchez RN 01:36 PM Versed 2 mg Intravenous Juany Sanchez RN 01:45 PM Lidocaine 2% 10 ml Subcutaneous Sergio Subramanian, DO 01:49 PM Versed 1 mg Intravenous Juany Sanchez RN ASA Classification: CLASS III- Severe systemic disease (i.e. prior AMI, diabetes with vascular complications, morbid obesity) Bonny Score Preprocedure Postprocedure Activity 2- Moves 4 extremities sustained head lift Activity 2- Moves 4 extremities sustained head lift Circulation 2- SBP +/= 20 points of pre-anesthetic level Circulation 2- SBP +/= 20 points of pre-anesthetic level Consciousness 2- Awake and alert oriented x 3 Consciousness 2- Awake and alert oriented x 3 O2 Saturation 2- Able to maintain O2 satruation of 92% on room air O2 Saturation 2- Able to maintain O2 satruation of 92% on room air Respiratory 2- Able to deep breathe and cough well Respiratory 2- Able to deep breathe and cough well Total Score 10 Total Score 10 Contrast Agent: Isovue Diagnostic Contrast: 60 ml Total Contrast: 60 ml Fluoro Dose: 394 mGy Procedure Log Time Note Enter By 01:24 PM Pt arrived to lab instructor 2 at 13:24 [facility] : PM Physician arrived 13:24 [facility] :25 PM Spenser and mamie completed [facility] : PM CathStat : PM Sign in performed according to hospital policy. [facility] : PM Procedure start 13: [facility] : PM Patient charges- Angio tray pack, Navilyst 3mm J, Pulse Oximetry and ACIST tubing and transducer [facility] : PM Juany Sanchez RN Position: [employer] [facility]: [facility] Paulo Irizarry RT (R) Position: Scrub Time in: : [facility] : PM Mary Ann Lockhart RT Position: Time in: : [facility] : PM Alexa Dumont RN Position: Monitor Time in: 13: [facility] :29 PM Patient charges- Angio tray pack, Navilyst 3mm J, Pulse Oximetry and ACIST tubing and transducer [facility] :29 PM Case Delayed No [facility] :30 PM Time: 13:30 Oxygen on at 2 L/min per nasal cannula by Juany Sanchez RN [facility] :30 PM Time: 13:30 Patient comfortable and pain free: Yes [facility] Time: 13:30LOC: 5 = Fully awake and oriented or at pre-proc level [facility] :31 PM Clinical Presentation: Unstable angina [facility] : PM Brenna Mcnamara (R) Position: Time in: [facility] :32 PM Vitals capture started with the following parameters, Patient=Adult, Interval=5 min, Initial Nharcvas=095 mmHg, Deflation Rate=5 mmHg, Cuff placed on Right Arm :32 PM Recorded ECG: HR=89 Condition=Condition 1 :32 PM IM=873 bpm, GOTW=338/82 mmhg, DsM3=472.0 %, Resp=26 B/min, Comment=NSR 01:34 PM ASA Class CLASS III- Severe systemic disease (i.e. prior AMI, diabetes with vascular complications, morbid obesity) [facility] 01:35 PM Hair removed from procedure site in procedure lab using clippers. Bilateral groin prepped with Chloraprep by Brenna Mcnamara (R), safety strap applied then patient was draped. Skin intact. [facility] 01:36 PM Time: 13:36 Versed 2 mg Intravenous Given by Juany Sanchez RN [facility] 01:37 PM HR=92 bpm, OAYW=988/70 mmhg, UeU9=910.0 %, Resp=17 B/min, Comment=NSR 01:38 PM Pressure channel 2 zeroed. 01:42 PM HR=91 bpm, JOYK=766/82 mmhg, VcO6=857.0 %, Resp=16 B/min, Comment=NSR 01:44 PM Time out performed according to hospital policy [facility] :45 PM Time: 13:30LOC: 5 = Fully awake and oriented or at pre-proc level [facility] :45 PM Time: 13:30 Patient comfortable and pain free: Yes [facility] Time: 13:45 10 ml Lidocaine 2% to right groin Subcutaneous Given by Sergio Subramanian DO lparsley 01:47 PM Micro-Introducer Kit utilized for sheath placement lparsley 01:47 PM HR=87 bpm, OAQY=728/83 mmhg, AwS8=714.0 %, Resp=7 B/min, Comment=NSR 01:48 PM Access obtained by percutaneous puncture. 6Fr 10cm [employer]um[employer] [place] sheath placed in right Femoral artery. [id number] lparsley 01:49 PM 6Fr FR 4 catheter inserted over the wire [facility] lparsley 01:49 PM Time: 13:49 Versed 1 mg Intravenous Given by Juany Sanchez RN [facility] 01:50 PM Catheter selectively placed in left ventricle lparsley 01:50 PM Bolus angiogram of left Ventricle complete: hand injected lparsley 01:50 PM Recorded Pressure: LV, HR=87, Condition=Condition 1 (Left Ventricle) LV 84/-10/-4 01:50 PM Recorded Pressure: LV, Ao, HR=91, Condition=Condition 1 (Left Ventricle) LV 99/-10/-2, (Aorta) Ao 98/62/79 01:51 PM RCA angiography performed in multiple views. lparsley 01:52 PM Catheter removed lparsley 01:52 PM 6Fr FL 4 catheter inserted over the wire DN lparsley 01:52 PM LCA angiography performed in multiple views. lparsley 01:52 PM HR=91 bpm, BIMG=194/71 mmhg, ZiM3=870.0 %, Resp=17 B/min, Comment=NSR 01:54 PM Recorded Pressure: Ao, HR=90, Condition=Condition 1 (Aorta) Ao 82/42/59 01:55 PM Bolus angiogram of right Femoral complete: hand injected lparsley 01:55 PM Coronary Dominance: right lparsley 01:56 PM Procedure completed at 13:56 lparsley 01:56 PM Sign out completed: Radiation Dose 394.42 mGy Fluoro Time: 2.7 Isovue 370 - 200ml contrast 60 ml given by Sergio Subramanian DO. Complications: NoneCardiac Rehab Consult needed: NoConfirmed administered medications: Yes lparsley 01:56 PM Isovue 370 - 200ml,1 Bottle(s) used. lparsley 01:57 PM HR=83 bpm, BZRW=625/87 mmhg, GwH2=295.0 %, Resp=15 B/min, Comment=NSR 01:58 PM Arterial sheath pulled, Angio-seal Evolution closure device used and was Successful [id number] S/N. lparsley 01:59 PM Post ECG NSR lparsley 01:59 PM Post Blood Pressure 143/87 lparsley 01:59 PM 13:59 Post Pulses Bilateral DP & PT 2+ lparsley 01:59 PM Information taught Cardiac Cath and Angioseal lparsley 01:59 PM Education needs Procedure, Plan of Care, and Safe & Effective Use of Medications lparsley 01:59 PM Learning barriers :None lparsley 01:59 PM Education Methods Verbal [facility] 01:59 PM Education evaluation Able to repeat information [facility] 01:59 PM Site status No bleeding/hematoma - Rt Groin as reported by Paulo Irizarry RT (R) at 13:59 lparsley 01:59 PM Opsite applied lparsley 02:01 PM Report given to Selina FOREMAN Pt taken to Room #39. 13:59 lparsashley 02:02 PM Time: 13:45 Patient comfortable and pain free: Yes lparsashley 02:03 PM Time: 13:45LOC: 5 = Fully awake and oriented or at pre-proc level lparsley 02:03 PM Plavix, Effient or Brilinta given No lparsley 02:03 PM Delay to floor No lparsley 02:03 PM Patient out of room: 14:03 lparsley 02:03 PM Family to be called by Dr. Subramanian lpailya 02:04 PM Complications: None lparsashley 02:04 PM Fluoro Time: 2.7 lparsashley 02:04 PM Isovue 370 - 200ml contrast 60 ml given by Sergio Subramanian DO. lparsashley 02:04 PM Radiation Dose 394.42 mGy [facility] Complications Complication None Hemodynamics Pressures Site Systolic/A Wave Diastolic/V Wave Mean LV 84 -10 -4 LV 99 -10 -2 AO 98 62 79 AO 82 42 59 Post Procedure Information Blood Pressure: 143/87 mmHg Rhythm: NSR Post procedural instructions were given Closure Device Time Device Success/Fail 02/02/2017 2:05:00 PM angioseal Successful Site Checks Time Location Status Staff Sheath In? Note 01:59 PM Rt Groin No bleeding/hematoma Paulo Irizarry RT (R) Pulses Time Site Pre-Procedure Post-Procedure Note Bilateral radial 2+ Bilateral DP & PT 2+ 1:59:00 PM Bilateral DP & PT 2+ Updated by Alexa Dumont RN on 02/02/2017 2:07:25 PM electronically signed on 02/02/2017 2:07:46 PM with status of Final
[2017-02-02] MEDS: 0.9 % Sodium Chloride 1,000 ML IVC SCH (15:12)
[2017-02-02] MEDS: Metoprolol XL (24 HR) Succ 25 MG TAB.ER.24H PO SCH (20:52)
[2017-02-02] MEDS: *HR* HYDROcodone/Acet 5/325 mg TABLET PO PRN (21:07)
[2017-02-02] MEDS: ALPRAZolam 0.5 MG TABLET PO PRN (21:11)
[2017-02-03] MEDS: *HR* Heparin 5,000 UNIT/ML VIAL SQ SCH (05:30)
[2017-02-03 06:15] LABS: BUN/Creatinine Ratio 14 (6-26); Blood Urea Nitrogen 15 mg/dL (7-20); Calcium 9.1 mg/dL (8.6-10.8); Carbon Dioxide 28 mEq/L (19-29); Chloride 103 mEq/L (98-109); Glucose 127 mg/dL (70-99); Osmolality,Calculated 288 (280-300); Potassium 3.9 mEq/L (3.5-4.5); Sodium 138 mEq/L (136-145); eGFR For African Americans > 60 (> 60); eGFR For Non-African Americans 56 (> 60)
[2017-02-03] MEDS: 0.9 % Sodium Chloride 1,000 ML IVC SCH (08:26)
[2017-02-03] MEDS: lamoTRIgine 100 MG TABLET PO SCH (09:19)
[2017-02-03] MEDS: Aspirin 81 MG TAB.CHEW PO SCH (09:19)
[2017-02-03] MEDS: Cholecalciferol (D-3) 1,000 UNIT TABLET PO SCH (09:19)
[2017-02-03] MEDS: Gabapentin 300 MG CAPSULE PO SCH (09:19)
[2017-02-03] MEDS: Pantoprazole 40 MG VIAL IVP SCH (09:20)
[2017-02-03] MEDS: Hyoscyamine SL 0.125 MG TAB.SUBL PO SCH (09:20)
[2017-02-03] MEDS: *HR* HYDROcodone/Acet 5/325 mg TABLET PO PRN (09:33)
[2017-02-03 11:09] VITALS: BP 119/81
--- NOTE | 2017-02-03 11:34 | Discharge Summary ---
Date of Encounter: 02/03/17 Time of Encounter: 10:30 - Discharge Diagnosis (1) Chest pain Priority: Primary Status: Ruled-out Comments: [facility] negative. (2) Stable angina Priority: Primary Status: Ruled-out (3) Acute exacerbation of CHF (congestive heart failure) Priority: Primary Status: Resolved Comments: Acute on chronic diastolic heart failure with preserved ejection fraction. Successfully diuresed. She appeared euvolemic though difficult to ascertain given her BMI of 55. No pedal edema noted. Lungs were clear without crackles present. Patient continued to endorse shortness of breath above her norm however she did not qualify for supplemental oxygen. This is an ongoing problem ; followup outpatient. Patient was recently diagnosed with CHF and placed on Lasix at home. Qualifiers: Congestive heart failure type: diastolic Qualified Code(s): I50.33 - Acute on chronic diastolic (congestive) heart failure (4) INOCENCIA (acute kidney injury) Priority: Primary Status: Resolved (5) Knee pain Priority: Primary Status: Chronic Comments: Patient endorsed left knee pain while admitted. She denied any injuries. She continually asked for more pain medication. In review of her chart, she has seen her PCP multiple times for knee pain. Negative Homans sign. On examination, no limits to her range of motion, no edema, distal pulses intact. Follow-up outpatient. No indication for further inpatient follow-up. (6) History of pulmonary embolus (PE) Priority: Secondary Status: Chronic Comments: CTA negative (7) Uncontrolled hypertension Priority: Secondary Status: Chronic Comments: Well controlled with her home medications. Followup outpatient. (8) Migraine Priority: Secondary Status: Chronic Comments: Per patient history. Continue home medications and outpatient followup. Qualifiers: Migraine type: without aura Status migrainosus presence: without status migrainosus Intractability: not intractable Qualified Code(s): G43.009 - Migraine without aura, not intractable, without status migrainosus (9) GERD (gastroesophageal reflux disease) Priority: Secondary Status: Chronic Comments: denied current symptoms. Continue home omeprazole (10) DVT prophylaxis Priority: Primary Status: Acute Comments: Subcutaneous heparin while admitted (11) Morbid obesity with BMI of 50.0-59.9, adult Priority: Secondary Status: Chronic - Discharge Medications Prescriptions: Aspirin 81 mg PO DAILY #30 Home Medications: ALPRAZolam [Xanax 0.5 MG Tablet] 0.5 mg PO TID PRN 11/04/16 [History] Albuterol Sulfate [Ventolin Hfa] 2 puff IH Q4H PRN 11/04/16 [History] Calcium Carbonate/Vitamin D3 [Calcium 500 + Vit D Caplet] 1 each PO BID [History] Cetirizine HCl [All Day Allergy] 10 mg PO DAILY PRN 11/04/16 [History] Cholecalciferol (D-3) [Vitamin D] 2,000 unit PO DAILY 11/04/16 [History] Fluticasone Propionate [Flovent Hfa] 1 puff IH BID 11/04/16 [History] Ibuprofen 800 mg PO TID PRN 11/04/16 [History] Losartan Potassium [Cozaar] 50 mg PO QAM 11/04/16 [History] Methocarbamol [Robaxin] 750 mg PO Q4H PRN 11/04/16 [History] Nitroglycerin [Nitrostat] 0.4 mg SL Q5M PRN 11/04/16 [History] Omeprazole [PriLOSEC] 40 mg PO QAM 11/04/16 [History] Quetiapine Fumarate [Seroquel] 400 mg PO HS 11/04/16 [History] Ranitidine HCl [Zantac] 300 mg PO HS 11/04/16 [History] lamoTRIgine [Lamictal] 100 mg PO QAM 11/04/16 [History] Amitriptyline HCl 150 mg PO HS 12/02/16 [History] Ferrous Sulfate [High Potency Iron] 134 mg PO DAILY 12/02/16 [History] Hyoscyamine Sulfate [Hyoscyamine Sulfate ER] 0.375 mg PO Q12H 12/02/16 [History] lamoTRIgine [Lamictal] 200 mg PO HS 12/02/16 [History] Atorvastatin [Lipitor] 40 mg PO HS 01/31/17 [History] Furosemide [Lasix] 20 mg PO DAILY 01/31/17 [History] Gabapentin [Neurontin] 300 mg PO TID 01/31/17 [History] Metoprolol XL (24 HR) Succ [Toprol Xl] 50 mg PO HS 01/31/17 [History] Paliperidone [Paliperidone ER] 3 mg PO DAILY 01/31/17 [History] Promethazine [Phenergan] 25 mg PO BID PRN 01/31/17 [History] Aspirin 81 mg PO DAILY #30 02/03/17 [Rx] Allergies/Adverse Reactions: 3 Allergy/AdvReac Type Severity Reaction Status Date / Time Penicillins Allergy See Verified 01/31/17 14:28 Comments Procedures/tests Complete & Pending: Procedures Performed prior 72 hours Category Date Time Status CL Cardiac Catheterization [CL] Routine Eyeglass Inspector 02/02/17 09:00 Completed Date of admission: 01/31/17 19:33 Primary care physician: Jamey Leroy MD Consults: 01/31/17 20:36 Consult to Pet Walker [CONS] Routine Reason for SW Consult: Needs assessed for home O2 needs d/t recent CHF dx. Discharging clinician: Brooke Robert Anticipated date of discharge: 02/03/17 - Patient Status Disposition: Home, Self-Care Condition: Fair Functional capacity at discharge: independent ambulation Overall status at discharge: patient is back to baseline - Discharge Instructions Follow Up With: Jamey Leroy MD [Primary Care Provider] - 02/09/17 2:30 pm Additional Instructions: Follow-up with primary care provider within one to 2 weeks RISK FACTORS: STOP SMOKING: If you smoke, STOP. Smoking or tobacco use significantly increases your risk of heart disease because nicotine causes the arteries to narrow or constrict. It also causes fats to stick to the artery. Your chances of having a heart attack are greatly increased if you continue to smoke. For more information, call the education line for smoking cessation 7-928-[id number] EAT A LOW FAT/CHOLESTEROL/SODIUM DIET: This diet may help reduce your chances of having a heart attack. LIFTING: Avoid lifting anything more than 10 pounds for 5-7 days Prior to straining, laughing, sneezing and/or coughing, apply manual pressure directly over insertion site. ACTIVITY: You may walk or climb stairs as tolerated You can resume sexual activity as tolerated In general, you are encouraged to engage in a minimum of 30 minutes or more of moderate intensity physical activity, such as brisk walking, daily or at least 3 -4 times weekly BATHING Do not submerge the site into water (bath tub, hot tub, swimming pool) for 1 week. This can be a source for infection into the blood stream. You may shower after 24 hours SITE CARE: After 24 hours, you may remove the dressing and leave the site open to air. Keep the site clean and dry. Clean gently and pat dry. You can expect bruising and tenderness that gradually resolve within a week or two. Return to work as instructed per your physician Resume driving as instructed per physician Keep all scheduled follow up appointments Resume medications as instructed IMPORTANT: If prescribed a Platelet Aggregation Inhibitor such as, Plavix, Brilinta or Effient: Duration of therapy is minimum one year These medications are often used in combination with Aspirin in prevention of future heart attacks Never discontinue unless consult with your Parking Worker STROKE (CVA) Risk factors for a stroke are: Age, cigarette smoking, diabetes, excessive alcohol consumption, family history, high blood pressure, overweight, physical inactivity, prior stroke, heart attack, diagnosis of carotid artery stenosis or other artery disease. Warning signs: Sudden numbness or weakness of the face, arm or leg; especially on one side of the body, sudden confusion, trouble speaking or understanding, sudden trouble seeing in one or both eyes, sudden trouble walking, dizziness, loss of balance or coordination, sudden severe headache with no cause. Call 911 or go to the Emergency Room. CONGESTIVE HEART FAILURE: If you have been diagnosed with Congestive Heart Failure (CHF) and your symptoms return, make an appointment with your physician Weigh yourself daily. Notify your physician if you have a weight gain of two or more pounds in one day or five or more pounds in one week. If you experience any difficulty breathing, please call 911 BLEEDING: Although the risk of bleeding is minimal, it can happen. If you have any bleeding from the site, apply firm pressure above the puncture site for 10-15 minutes. If the bleeding does not stop, continue manual pressure and call 911 Contact your physician if: You develop a fever greater than 101 degrees Fahrenheit Your site becomes reddened or has any drainage You have an increase in pain or burning at the site or if a large knot forms at the site. If you experience chest pain, shortness of breath, dizziness, or extreme tiredness, stop the activity and rest. Please notify your physicians office if you experience any of these symptoms and they are not relieved by rest please call 911! - Diet and Activity Activity: increase activity as tolerated Diet: low fat, low cholesterol, low salt diet Hospital course: Ms. Brown is a 42 year old female with past medical history of CHF, GERD, hypertension, migraines, COPD, morbid obesity BMI 55. Patient presented to the emergency department with a chief complaint of shortness of breath, dyspnea on exertion, and chest pain. Patient had a cardiac workup prior to presentation which consisted of a negative stress test and an unremarkable echocardiogram with preserved ejection fraction. Workup in the emergency department unremarkable. Chest x-ray negative. CTA negative for acute processes. Patient stating she was recently diagnosed with CHF and placed on 20 mg of Lasix daily by her primary care provider. She was admitted to the hospitalist service for further evaluation and management. She was started on IV furosemide and was successfully diuresed. She did have a mild acute kidney injury while admitted that resolved prior to discharge. Regarding her chest pain, patient was persistently complaining of continued chest pain and continually asked for IV pain medication. Cardiology was brought on board and the decision was made to proceed with a left heart catheter. Left heart catheter revealed nonobstructive CAD and the patient was cleared for outpatient follow-up. Regarding risk factor modification, heart healthy diet was emphasized as well as daily exercise and weight loss. She was started on a baby aspirin. She is already on a statin. After her left heart catheter, patient began to complain of left knee pain and continually asked for more pain medication. In review of her chart, patient has had ongoing knee pain for quite some time and she has seen her primary care provider regarding this. Negative Homans sign, no limits to range of motion, no edema, neurovascularly intact. Initially, patient was utilizing supplemental oxygenation mostly for comfort. We weaned her to room air and she did not qualify for supplemental oxygen. Of note, she stated that because she gets short of breath with ambulation, that she would have liked to take the oxygen home however she did not qualify. Also of note, at time of discharge, patient continually requested narcotic pain medication. With acute cardiac or pulmonic etiologies ruled out and with her chronic pain, no indication for narcotics were noted during this inpatient visit. She was instructed to follow-up with her primary care provider regarding chronic pain management. She was discharged home in stable condition with close outpatient follow-up recommended. ITS Impressions Chest X-Ray 01/31/17 14:28 IMPRESSION: No evidence of acute disease. D/ / Gilmer Irizarry MD / Gilmer Irizarry MD Interpreting Provider: Gilmer Irizarry MD Chest CTA 01/31/17 16:18 IMPRESSION: 1. Suboptimal opacification of subsegmental pulmonary artery branches. Within that limitation, no findings of pulmonary embolism are identified. 2. Mild cardiomegaly. D/ / Vito Light MD / Vito Light MD Interpreting Provider: Vito Light MD Echo with Imaging Enhancement Agent Date of Study: 01/29/2017 Impressions: LVEF 60%. Normal LV chamber size, wall thickness and function. Mild left ventricular diastolic dysfunction. Mildly dilated right ventricle with normal function. No significant valvular dysfunction. No evidence of pulmonary hypertension. Regadenosen nuclear 2 day stress test impression 12/04/16: Perfusion imaging was negative for ischemia or infarct. Pharmacologic ECG was negative for ischemia at the level of heart rate achieved. Patient had chest pain throughout procedure. Gated ejection fraction equals 60%. - Time Spent with Patient Total time spent providing and/or coordinating discharge services: - Constitutional Vitals: Temp Pulse Resp BP Pulse Ox 97.6 F 95 18 119/81 98 02/03/17 11:07 02/03/17 11:07 02/03/17 11:07 02/03/17 11:07 02/03/17 11:07 General appearance: Present: cooperative, A&O X 3, morbidly obese, pleasant, no acute distress, answers questions appropriately - Head Head exam: Present: atraumatic, normocephalic - Eye Eye exam: Present: PERRL, conjuntiva pink, sclera anicteric Pupils: Present: PERRL - Neck Neck exam general surgery: Present: supple, trachea midline. Absent: lymphadenopathy - Respiratory Respiratory exam: Present: CTAB. Absent: accessory muscle use, rales, respiratory distress, rhonchi, wheezes - Cardiovascular Cardiovascular exam: Present: RRR, +S1, +S2. Absent: diastolic murmur, gallop, rubs, systolic murmur - GI/Abdominal GI/Abdominal exam: Present: normal bowel sounds, soft, no peritoneal signs. Absent: distended, tenderness - Extremities Exam Extremities exam: Present: warm, radial pulses palpable and symmetrical. Absent : calf tenderness, cyanotic, pedal edema - Neurological Exam Neurological exam: Present: alert, CN II-XII intact, normal gait, oriented X3, no focal deficits, strengths equal and symetr throughout. Absent: pronater drift, facial droop, speech deficit - Skin Skin exam: Present: dry, intact, normal color, warm
--- NOTE | 2017-02-08 07:13 | Electrocardiograph Report ---
[facility] Test Date: 2017-01-31 Pat Name: Keli Brown Department: 105 Room: 3B39 Gender: F [employer] Raiser: : 1975 Requested By: Jens Wilson Order Number: [id number] Reading MD: Felicia Lane DO Measurements Intervals [place] Rate: 102 P: 25 [place]: 162 QRS: 39 QRSD: 94 T: 16 QT: 340 QTc: 399 Interpretive Statements SINUS TACHYCARDIA ABNORMAL RHYTHM ECG Electronically Signed On 02-08-2017 7:11:[address] DO
== END 2017-02-03 13:41 | disposition home or self-care (01) ==
LOC: 3BNU 14:21 → EMEROO 14:21 → SUATTDRO 19:33 → 3BNU 20:04
PROVIDERS: ADMIT Nurse Practitioner Family; ATTEND Nurse Practitioner Family

== ENCOUNTER 2019-04-01 15:03 | Observation (INO) ==
[2019-04-01] MEDS ORDERED: Ondansetron 4 MG/2 ML VIAL IVP ONE (15:40)
[2019-04-01] MEDS ORDERED: Aspirin 325 MG TABLET PO ONE (15:44)
[2019-04-01] MEDS ORDERED: 0.9 % Sodium Chloride 1,000 ML IVC ONE (15:44)
[2019-04-01 16:02] LABS: Basophils % 0.6 %; Eosinophils % 0.4 %; Hematocrit 46.4 % (35.3-44.9); Hemoglobin 15.5 g/dL (11.5-15.4); Immature Granulocytes % 0.2 % (0-4); Immature Platelets 5.9 % (1.1-6.1); Lymphocytes # 1.6 K/mcL (0.6-4.6); Lymphocytes % 29.2 %; Mean Corpuscular HGB Conc 33.4 g/dL (31.6-35.5); Mean Corpuscular Hemoglobin 29.2 pg (28.0-33.3); Mean Corpuscular Volume 87.4 fL (83.0-100.0); Mean Platelet Volume 10.7 fL (9.4-12.4); Monocytes # 0.4 K/mcL (0.0-1.3); Monocytes % 7.6 %; Neutrophils # 3.3 K/mcL (1.6-8.9); Platelet Count 210 K/mcL (140-400); Red Blood Count 5.31 M/mcL (3.82-4.97); Red Cell Distribution Width 12.5 % (11.5-14.5); White Blood Count 5.4 K/mcL (4.3-11.1)
[2019-04-01 16:09] LABS: INR 1.1; Prothrombin Time 12.3 Seconds (9.4-12.1)
[2019-04-01 16:27] LABS: Lipase 14 Units/L (11-82); Troponin I < 0.03 ng/mL (< 0.04)
[2019-04-01] MEDS ORDERED: Isovue-370 500 ML BOTTLE IVP ONE ×2 (16:36→17:15)
[2019-04-01] MEDS ORDERED: *HR* FentaNYL (PF) 100 MCG/2 ML VIAL IVP ONE (17:51)
[2019-04-01] MEDS ORDERED: *HR* Dextrose 50 % in Water (Syg) 50 ML SYRINGE IVP ONE (17:59)
[2019-04-01] MEDS ORDERED: *HR* Dextrose 50 % in Water (Syg) 50 ML SYRINGE ONE (18:00)
[2019-04-01 18:30] LABS: Alanine Aminotransferase 16 Units/L (7-52); Albumin 4.2 g/dL (3.5-5.7); Albumin/Globulin Ratio 1.2 (1.1-2.2); Alkaline Phosphatase 114 Units/L (34-104); Aspartate Amino Transferase 21 Units/L (13-39); BUN/Creatinine Ratio 16 (6-26); Bilirubin,Total 0.5 mg/dL (0.3-1.0); Blood Urea Nitrogen 17 mg/dL (6-20); Calcium 8.9 mg/dL (8.6-10.3); Carbon Dioxide 26 mEq/L (23-29); Chloride 101 mEq/L (98-107); Globulin 3.4 g/dL (2.4-3.5); Glucose 64 mg/dL (70-105); Osmolality,Calculated 282 (280-300); Potassium 3.8 mEq/L (3.5-5.1); Sodium 136 mEq/L (136-145); Total Protein 7.6 g/dL (6.4-8.9); eGFR For African Americans > 60 (> 60); eGFR For Non-African Americans 58 (> 60)
[2019-04-01] MEDS: D5% in 0.9% NACL 1,000 ML IVC SCH (20:02)
[2019-04-01] MEDS ORDERED: Naloxone 0.4 MG/ML INJ IVP PRN (21:10)
[2019-04-01] MEDS ORDERED: Nitroglycerin 0.4 MG TAB.SUBL SL PRN (21:13)
[2019-04-01] MEDS ORDERED: Furosemide 20 MG TABLET PO PRN (21:13)
[2019-04-01] MEDS: Ondansetron ODT 4 MG TAB.RAPDIS SL PRN (22:26)
[2019-04-01] MEDS ORDERED: Diphenoxylate/Atropine 1 TAB TABLET PO PRN (23:21)
[2019-04-01] MEDS: lamoTRIgine 100 MG TABLET PO SCH (23:37)
[2019-04-01] MEDS: ALPRAZolam 1 MG TABLET PO PRN (23:37)
[2019-04-01] MEDS: Famotidine 20 MG TABLET PO SCH (23:39)
[2019-04-02] MEDS: Gabapentin 300 MG CAPSULE PO SCH ×4 (00:40→21:07)
[2019-04-02] MEDS: D5% in 0.9% NACL 1,000 ML IVC SCH ×3 (04:44→21:05)
[2019-04-02] MEDS: *HR* Heparin 5,000 UNIT/ML VIAL SQ SCH ×2 (05:50→17:15)
[2019-04-02] MEDS: Ondansetron ODT 4 MG TAB.RAPDIS SL PRN (06:14)
[2019-04-02] MEDS: *HR* HYDROcodone/Acet 5/325 mg TABLET PO PRN ×3 (06:14→16:09)
[2019-04-02 06:30] LABS: Basophils % 0.4 %; Eosinophils % 0.9 %; Hematocrit 43.6 % (35.3-44.9); Hemoglobin 14.4 g/dL (11.5-15.4); Immature Granulocytes % 0.2 % (0-4); Lymphocytes # 1.4 K/mcL (0.6-4.6); Lymphocytes % 30.2 %; Mean Corpuscular Hemoglobin 28.8 pg (28.0-33.3); Mean Corpuscular Volume 87.2 fL (83.0-100.0); Mean Platelet Volume 10.7 fL (9.4-12.4); Monocytes # 0.4 K/mcL (0.0-1.3); Monocytes % 8.1 %; Neutrophils # 2.8 K/mcL (1.6-8.9); Platelet Count 202 K/mcL (140-400); Red Cell Distribution Width 12.6 % (11.5-14.5); Segmented Neutrophils % 60.2 %; White Blood Count 4.6 K/mcL (4.3-11.1)
[2019-04-02 06:51] LABS: BUN/Creatinine Ratio 14 (6-26); Blood Urea Nitrogen 15 mg/dL (6-20); Calcium 8.8 mg/dL (8.6-10.3); Carbon Dioxide 29 mEq/L (23-29); Chloride 104 mEq/L (98-107); Chol/HDL Ratio 5.7 (0-4.9); Cholesterol 143 mg/dL (< 200); Glucose 87 mg/dL (70-105); HDL Cholesterol 25 mg/dL (40-59); LDL Cholesterol,Calculated 95 mg/dL (0-99); Osmolality,Calculated 286 (280-300); Potassium 3.8 mEq/L (3.5-5.1); Sodium 138 mEq/L (136-145); Triglycerides 115 mg/dL (< 150); eGFR For African Americans > 60 (> 60); eGFR For Non-African Americans 57 (> 60)
[2019-04-02 07:42] LABS: Amphetamine Screen,Urine Negative ng/mL (Cutoff=1000); Barbiturate Screen,Urine Positive ng/mL (Cutoff=200)
[2019-04-02 07:43] LABS: Benzodiazepines Screen,Urine Positive ng/mL (Cutoff=300); Cannabinoid Screen,Urine Negative ng/mL (Cutoff = 50); Cocaine Screen,Urine Negative ng/mL (Cutoff= 300); Opiate Screen,Urine Negative ng/mL (Cutoff=300); Phencyclidine Screen,Urine Negative ng/mL (Cutoff=25)
[2019-04-02] MEDS: ARIPiprazole 10 MG TABLET PO SCH (08:51)
[2019-04-02] MEDS: Aspirin Enteric Coated 81 MG Tablet PO SCH (08:52)
[2019-04-02] MEDS: Loratadine 10 MG TABLET PO SCH (08:52)
[2019-04-02] MEDS: Metoprolol 100 MG TABLET PO SCH (08:53)
[2019-04-02] MEDS: *HR* HYDROmorphone 2 MG TABLET PO PRN (08:57)
[2019-04-02] MEDS ORDERED: *HR* Promethazine 25 MG/ML VIAL IVP ONE (13:12)
[2019-04-02] MEDS: ALPRAZolam 1 MG TABLET PO PRN (16:04)
[2019-04-02] MEDS ORDERED: Acetaminophen/Butalbital/CaffeineTABLET PO ONE (20:55)
[2019-04-02] MEDS: lamoTRIgine 100 MG TABLET PO SCH (21:08)
[2019-04-02] MEDS: Famotidine 20 MG TABLET PO SCH (21:09)
[2019-04-02] MEDS ORDERED: Ketorolac 15 MG/ML VIAL IVP ONE (23:13)
[2019-04-03] MEDS: D5% in 0.9% NACL 1,000 ML IVC SCH (04:46)
[2019-04-03] MEDS: *HR* Heparin 5,000 UNIT/ML VIAL SQ SCH (06:21)
[2019-04-03] MEDS: Gabapentin 300 MG CAPSULE PO SCH (08:43)
[2019-04-03] MEDS: ARIPiprazole 10 MG TABLET PO SCH (08:43)
[2019-04-03] MEDS: Metoprolol 100 MG TABLET PO SCH (08:43)
[2019-04-03] MEDS: Aspirin Enteric Coated 81 MG Tablet PO SCH (08:43)
[2019-04-03] MEDS: Loratadine 10 MG TABLET PO SCH (08:43)
[2019-04-03] MEDS ORDERED: Nitroglycerin 1,000 MCG/10 ML VIAL IV ONE ×2 (09:04→09:57)
[2019-04-03] MEDS ORDERED: Heparin 1,000 UNITS/500 mL 500 ML ONE (09:04)
[2019-04-03] MEDS ORDERED: ISOVUE-370 200 ML INFUS..BTL ONE (09:04)
[2019-04-03] MEDS ORDERED: 0.9 % Sodium Chloride 2,000 ML ONE (09:04)
[2019-04-03] MEDS ORDERED: *HR* Heparin 10,000 UNIT/10 ML VIAL ONE (09:04)
[2019-04-03] MEDS ORDERED: *HR* Midazolam HCl 2 MG/2 ML VIAL ONE ×2 (09:47→09:59)
[2019-04-03] MEDS ORDERED: *HR* FentaNYL (PF) 100 MCG/2 ML VIAL ONE (09:47)
[2019-04-03] MEDS ORDERED: Verapamil 5 MG/2 ML VIAL ONE (09:48)
[2019-04-03] MEDS ORDERED: Furosemide 20 MG TABLET PO SCH (10:15)
[2019-04-03] MEDS: *HR* HYDROmorphone 2 MG TABLET PO PRN (11:05)
[2019-04-03 13:16] VITALS: BP 125/89
[2019-04-04] MEDS ORDERED: Metoprolol XL (24 HR) Succ 50 MG TAB.ER.24H PO SCH (09:00)
== END 2019-04-03 14:24 | disposition home or self-care (01) ==
LOC: EMEROOARM 15:03 → 2ANU 15:03 → SUATTDRO 20:01 → 2ANU 20:18
PROVIDERS: ADMIT Internal Medicine; ATTEND Internal Medicine

== ENCOUNTER 2020-07-26 01:50 | Observation (INO) ==
[2020-07-26 02:29] LABS: Basophils % 0.2 %; Hematocrit 44.1 % (37.5-50.1); Immature Granulocytes % 0.5 % (0-4); Lymphocytes # 0.6 K/mcL (0.6-4.6); Lymphocytes % 7.1 %; Mean Corpuscular HGB Conc 31.7 g/dL (31.6-35.5); Mean Corpuscular Hemoglobin 27.6 pg (28.0-33.3); Mean Corpuscular Volume 86.8 fL (83.0-100.0); Mean Platelet Volume 11.1 fL (9.4-12.4); Monocytes # 0.1 K/mcL (0.0-1.3); Monocytes % 1.3 %; Neutrophils # 7.4 K/mcL (1.6-8.9); Platelet Count 221 K/mcL (140-400); Red Blood Count 5.08 M/mcL (4.19-5.50); Red Cell Distribution Width 13.7 % (11.5-14.5); Segmented Neutrophils % 90.9 %; White Blood Count 8.2 K/mcL (4.3-11.1)
[2020-07-26 02:44] LABS: BUN/Creatinine Ratio 17 (6-26); Blood Urea Nitrogen 17 mg/dL (6-20); Calcium 9.5 mg/dL (8.6-10.3); Carbon Dioxide 23 mEq/L (23-29); Chloride 104 mEq/L (98-107); Glucose 235 mg/dL (70-105); Osmolality,Calculated 289 (280-300); Sodium 135 mEq/L (136-145); eGFR For African Americans > 60 (> 60); eGFR For Non-African Americans > 60 (> 60)
[2020-07-26 02:45] LABS: Troponin I < 0.03 ng/mL (< 0.04)
[2020-07-26] MEDS ORDERED: Morphine Sulfate 2 MG/ML SYRINGE IVP ONE (02:54)
[2020-07-26] MEDS ORDERED: Aspirin 81 MG TAB.CHEW PO ONE (02:54)
[2020-07-26] MEDS ORDERED: Ondansetron 4 MG/2 ML VIAL IM ONE (03:22)
[2020-07-26] MEDS ORDERED: Isovue-370 500 ML BOTTLE IVP ONE (04:42)
[2020-07-26] MEDS ORDERED: GI Cocktail 40 ML EACH PO ONE (04:43)
[2020-07-26 06:50] LABS: VBG HCO3 24 mEq/L (21-27); VBG PCO2 40 mmHg (41-51); VBG PH 7.38 pH Units (7.32-7.42); VBG PO2 185 mmHg (25-50)
[2020-07-26] MEDS ORDERED: Furosemide 40 MG/4 ML VIAL IVP ONE (08:46)
[2020-07-26] MEDS ORDERED: Ondansetron 4 MG/2 ML VIAL IVP PRN ×2 (08:47→15:11)
[2020-07-26] MEDS ORDERED: Naloxone 0.4 MG/ML INJ IVP PRN (08:47)
[2020-07-26] MEDS ORDERED: Perflutren Lipid Microsphere 1.3 ML in 0.9 % Sodium Chloride 8.7 ML IVP PRN (08:54)
[2020-07-26] MEDS: Acetaminophen 325 MG TABLET PO PRN ×2 (09:20→23:36)
[2020-07-26 09:40] LABS: Sodium, Urine 83.8 mEq/L
[2020-07-26 09:49] LABS: Bilirubin,Urine Negative (Negative); Blood,Urine Negative (Negative); Clarity,Urine Clear (Clear); Color,Urine Light-Yellow (Yellow); Glucose,Urine (UA) 500 mg/dL (Normal); Ketones,Urine Negative (Negative); Leukocyte Esterase,Urine Small (Negative); Mucus,Urine Few per lpf (None-Few); Nitrite,Urine Negative (Negative); Protein,Urine 30 mg/dL (Neg-Trace); Specific Gravity,Urine > 1.030 (1.010-1.025); Squamous Epithelial Cell,Urine Few per hpf (None-Few); Urobilinogen,Urine Normal (Normal)
[2020-07-26] MEDS: Pregabalin 75 MG CAPSULE PO SCH ×2 (14:45→21:13)
[2020-07-26] MEDS: *HR* Heparin 5,000 UNIT/ML VIAL SQ SCH (17:50)
[2020-07-26] MEDS ORDERED: ALPRAZolam 1 MG TABLET PO PRN (19:54)
[2020-07-27 03:28] LABS: Hematocrit 40.2 % (37.5-50.1); Hemoglobin 12.6 g/dL (12.9-16.9); Mean Corpuscular HGB Conc 31.3 g/dL (31.6-35.5); Mean Corpuscular Volume 86.3 fL (83.0-100.0); Mean Platelet Volume 10.9 fL (9.4-12.4); Platelet Count 186 K/mcL (140-400); Red Blood Count 4.66 M/mcL (4.19-5.50); Red Cell Distribution Width 14.2 % (11.5-14.5); White Blood Count 8.4 K/mcL (4.3-11.1)
[2020-07-27 03:48] LABS: BUN/Creatinine Ratio 20 (6-26); Blood Urea Nitrogen 20 mg/dL (6-20); Carbon Dioxide 27 mEq/L (23-29); Chloride 104 mEq/L (98-107); Glucose 121 mg/dL (70-105); Osmolality,Calculated 290 (280-300); Potassium 3.7 mEq/L (3.5-5.1); Sodium 138 mEq/L (136-145); eGFR For African Americans > 60 (> 60); eGFR For Non-African Americans > 60 (> 60)
[2020-07-27] MEDS: *HR* Heparin 5,000 UNIT/ML VIAL SQ SCH (05:24)
[2020-07-27] MEDS ORDERED: tiZANidine 4 MG TABLET PO ONE (05:31)
[2020-07-27] MEDS: Pregabalin 75 MG CAPSULE PO SCH (07:16)
[2020-07-27] MEDS: Acetaminophen 325 MG TABLET PO PRN (07:16)
[2020-07-27 08:50] LABS: Estimated Average Glucose 117 mg/dl; Hemoglobin A1C 5.7 %
[2020-07-27] MEDS ORDERED: polyethylene glycoL 3350 17 GM POWD.PACK PO SCH (09:45)
[2020-07-27 11:08] VITALS: BP 122/81
== END 2020-07-27 11:25 | disposition home or self-care (01) ==
LOC: 2ANU 01:50 → EMEROOARM 01:50 → 2ANU 13:08
PROVIDERS: ADMIT Internal Medicine; ATTEND Internal Medicine